=== PATIENT | male | born 1955 | race Caucasian/White ===

== ENCOUNTER 2018-01-14 07:20 | Emergency (ER) | payer OTHER ==
[2018-01-14] MEDS ORDERED: Lorazepam 2 MG/ML VIAL ONE (07:50)
[2018-01-14 07:56] LABS: INR-International Normal Ratio 1.3; Prothrombin Time 16.4 SEC (12.0-14.7)
[2018-01-14 07:57] LABS: Hemoglobin 9.8 g/dL (14.0-18.0); Mean Corpuscular HGB CONC 33.1 g/dL (32.0-36.0); Mean Corpuscular Hemoglobin 27.4 pg (27.0-31.0); Mean Corpuscular Volume 82.9 fL (78.0-98.0); Mean Platelet Volume 7.2 fL (7.4-10.4); PTT 48.9 SEC (22.9-36.1); Platelet Count 142 thou/uL (130-400); RBC Distribution Width 17.2 % (11.5-14.5); Red Blood Cell (RBC) Count 3.59 mill/uL (4.70-6.10); White Blood Cell (WBC) Count 4.1 thou/uL (4.8-10.8)
[2018-01-14 08:04] LABS: ALT (SGPT) 26 U/L (8-55); AST (SGOT) 51 U/L (5-34); Albumin 3.4 g/dL (3.4-4.8); Alkaline Phosphatase 157 U/L (40-150); Anion Gap 11 mmol/L (10-20); BUN (Urea Nitrogen) 18 mg/dL (8.4-25.7); Bilirubin, Total 1.6 mg/dL (0.2-1.2); CK (CPK) 120 U/L (30-200); Calc. Creatinine Clearance 0 mL/min (70-130); Calcium 9.1 mg/dL (7.8-10.44); Carbon Dioxide 24 mmol/L (23-31); Chloride 102 mmol/L (98-107); Estimated GFR-MDRD Greater than 90; Globulin 4.8 g/dL (2.4-3.5); Glucose 139 mg/dL (80-115); Lipase 83 U/L (8-78); Potassium 4.3 mmol/L (3.5-5.1); Protein, Total 8.2 g/dL (5.8-8.1); Sodium 133 mmol/L (136-145)
[2018-01-14 08:25] LABS: Acetaminophen Less than 6.0 mcg/mL (10.0-30.0); Alcohol Less than 10 mg/dL (Less than 10); Salicylate Less than 8.0 mg/dL (15.0-30.0)
[2018-01-14 08:37] LABS: Band 3 % (5-11); Eosinophils 3 % (0-10); Lymphocytes 14 % (21-51); MDiff Complete? YES; Monocytes 15 % (0-10); Neutrophil 63 % (42-75); PLT Morphology Comment Appears Adequate; Polychromasia SLIGHT = 2-3 cells (100X) (0-2/hpf)
--- NOTE | 2018-01-14 09:09 | CT ---
CT HEAD WITHOUT CONTRAST: Multiple axial tomograms were obtained through the head without IV enhancement. INDICATION: Altered mental status. COMPARISON: There are no comparisons. FINDINGS: There is a 9 mm dense nodular mass seen in the roof of the third ventricle at the foramen of Monro. This is consistent with a colloid cyst. Ventricle size is within normal range. There is no intraparenchymal mass, hemorrhage, or infarct identified. Paranasal sinuses are aerated, although there is mucosal thickening in the right maxillary antrum. There is abnormality involving the osseous structures at the base of the skull on the right. Increas ed sclerosis and bone thickening. This appears to primarily involve the sphenoid bone and temporal b one on the right. IMPRESSION: 1. 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 2. Abnormal osseous findings at the base of the skull on the right with associated mucosal thickenin g of the right maxillary sinus. Considerations include fibrous dysplasia and Margret's disease. Findings were related to Dr. Romero. CODE CR POS: [facility]
== END 2018-01-14 12:16 | disposition short-term general hospital (02) ==
LOC: ERS 07:20
DX: K72.90 Hepatic failure, unspecified without coma (principal); K74.60 Unspecified cirrhosis of liver; I11.0 Hypertensive heart disease with heart failure; I50.9 Heart failure, unspecified; E66.9 Obesity, unspecified; Z79.01 Long term (current) use of anticoagulants; Z79.899 Other long term (current) drug therapy; Z79.82 Long term (current) use of aspirin
CPT/HCPCS: 36415; 70450; 80053; 80307; 82140; 82550; 83690; 85025; 85610; 85730; 93005; 96361; 96374; J2060

== ENCOUNTER 2018-02-09 23:56 | Emergency (ER) | payer OTHER ==
[2018-02-10 01:25] LABS: INR-International Normal Ratio 1.3; Prothrombin Time 16.6 SEC (12.0-14.7)
[2018-02-10 01:45] LABS: Band 4 % (5-11); Eosinophils 9 % (0-10); Hemoglobin 9.5 g/dL (14.0-18.0); Lymphocytes 23 % (21-51); MDiff Complete? YES; Mean Corpuscular HGB CONC 32.6 g/dL (32.0-36.0); Mean Corpuscular Hemoglobin 27.6 pg (27.0-31.0); Mean Corpuscular Volume 84.6 fL (78.0-98.0); Monocytes 12 % (0-10); Neutrophil 49 % (42-75); PLT Morphology Comment Appears Decreased; Platelet Count 109 thou/uL (130-400); RBC Distribution Width 17.5 % (11.5-14.5); Red Blood Cell (RBC) Count 3.43 mill/uL (4.70-6.10); White Blood Cell (WBC) Count 3.2 thou/uL (4.8-10.8)
[2018-02-10 02:08] LABS: ALT (SGPT) 27 U/L (8-55); AST (SGOT) 45 U/L (5-34); Albumin 3.1 g/dL (3.4-4.8); Alkaline Phosphatase 142 U/L (40-150); Anion Gap 12 mmol/L (10-20); BUN (Urea Nitrogen) 12 mg/dL (8.4-25.7); Bilirubin, Total 2.2 mg/dL (0.2-1.2); Calc. Creatinine Clearance 0 mL/min (70-130); Calcium 9.2 mg/dL (7.8-10.44); Carbon Dioxide 24 mmol/L (23-31); Chloride 107 mmol/L (98-107); Estimated GFR-MDRD Greater than 90; Globulin 4.5 g/dL (2.4-3.5); Glucose 106 mg/dL (80-115); Lipase 82 U/L (8-78); Potassium 3.9 mmol/L (3.5-5.1); Protein, Total 7.6 g/dL (5.8-8.1); Sodium 139 mmol/L (136-145)
[2018-02-10] MEDS ORDERED: hydrALAZINE 20 MG/ML VIAL ONE (04:07)
[2018-02-10 07:06] LABS: Bilirubin Negative (Negative); Blood, Urine Negative (Negative); Clarity CLEAR (Clear); Glucose, Urine (Dipstick) Negative (Negative); Leukocyte Negative (Negative); Nitrite Negative (Negative); Protein, Urine (Dipstick) Negative (Neg-Trace); Specific Gravity, Urine 1.026 (1.002-1.036)
--- NOTE | 2018-02-10 07:38 | CT ---
PRELIMINARY REPORT/[facility]/EMERGENTY AFTER-HOURS PROCEDURE Addendum created by Lonnie Lopez MD on 02/10/2018 2:56 AM Central Time ([place] & [place]) Findings were discussed with MARIO HOOKS at 02/10/2018 2:55 AM CDT. Patient had prior head CT (images not currently available) which demonstrated the colloid cyst at the foramen of Thomas and abnormalit y at the skull base seen on current exam. Initial Report created on 02/10/2018 2:50 AM Central Time ([place] & [place]) CT Head Without Intravenous Contrast EXAM DATE/TIME: Exam ordered 02/10/2018 2:15 AM CLINICAL HISTORY: 62 years old, male; Signs and symptoms; Altered mental status/memory loss; Patient HX: Er 6; AMS; HX provided by [facility] staff. Reports that pt was found wandering around naked with AMS. Abdominal exam inc luded findings of abdomen tender, diffusely, mild intensity, abdomen distended TECHNIQUE: Axial computed tomography images of the head/brain without intravenous contrast. COMPARISON: No relevant prior studies available. FINDINGS: Brain: Normal. No hemorrhage. No significant white matter disease. No edema. Ventricles: No ventriculomegaly. Bones/joints: There is a expansile mass involving the lateral wall of the RIGHT sphenoid bone which e xtends into the pterygoid space with wall thickening of the sphenoid bone and low density internal de bris for which fibro-osseous lesion is possible. No acute fracture. Soft tissues: Normal. Sinuses: Unremarkable as visualized. No acute sinusitis. Mastoid air cells: Unremarkable as visualized. No mastoid effusion. Other findings: There is a 7 mm colloid cyst. IMPRESSION: 1. No acute intracranial hemorrhage. 2. Expansile mass involving the RIGHT sphenoid bone as above. 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 MRI may be performed for further evaluation if clinically warranted. 3. There is a 7 mm colloid cyst. Thank you for allowing us to participate in the care of your patient. Dictated and Authenticated by: Lonnie Lopez MD 02/10/2018 2:50 AM Central Time ([place] & [place]) CT BRAIN WITHOUT CONTRAST: FINDINGS: I agree with the preliminary report by RONY. No significant change is seen since exam of the 02-14-18. POS: [facility]
--- NOTE | 2018-02-10 07:50 | CT ---
PRELIMINARY REPORT/[facility]/EMERGENTY AFTER-HOURS PROCEDURE CT Abdomen and Pelvis With Intravenous Contrast EXAM DATE/TIME: Exam ordered 02/10/2018 2:19 AM CLINICAL HISTORY: 62 years old, male; Pain; Abdominal pain; Generalized; Patient HX: Er 6; AMS; HX provided by azul rolle. Reports that pt was found wandering around naked with AMS. Abdominal exam included findings of ab domen tender, diffusely, mild intensity, abdomen distended. Hepatitis C. TECHNIQUE: Axial computed tomography images of the abdomen and pelvis with intravenous contrast. Coronal reformatted images were created and reviewed. COMPARISON: No relevant prior studies available. FINDINGS: Lung bases: The visualized portions of the lung bases are normal. ABDOMEN: Liver: There is nodularity of the liver contour compatible cirrhosis. Gallbladder and bile ducts: The gallbladder is normal. There is no evidence of biliary ductal dilatio n. No calcified stones. Pancreas: The pancreas appears normal. No ductal dilation. Spleen: The spleen is mildly enlarged. Adrenals: The adrenal glands are normal. Kidneys and ureters: The kidneys appear normal. No hydronephrosis. Stomach and bowel: The duodenum is unremarkable. The stomach is normal. No obstruction. No mucosal th ickening. PELVIS: Appendix: No appendix is specifically identified. There is no evidence of fluid collections or inflam matory stranding in the right lower quadrant. Bladder: The bladder is normal. Reproductive: The prostate gland and seminal vesicles are normal. ABDOMEN and PELVIS: Intraperitoneal space: There is a small amount of free pelvic fluid present. There is trace fluid in the RIGHT upper quadrant. No free air. Bones/joints: There is sclerosis of the bilateral femoral heads suggestive of avascular necrosis. No acute fracture. No dislocation. Soft tissues: Normal. Vasculature: There are markedly enlarged esophageal varices and nodularity of the liver contour suggestive of portal hypertension. Lymph nodes: Normal. No enlarged lymph nodes. IMPRESSION: 1. There are markedly enlarged esophageal varices and nodularity of the liver contour suggestive of p ortal hypertension. 2. There is a small amount of free pelvic fluid present. No drainable ascites. Findings were discussed with MARIO HOOKS at 02/10/2018 2:54 AM CDT. Thank you for allowing us to participate in the care of your patient. Dictated and Authenticated by: Lonnie Lopez MD 02/10/2018 3:00 AM Central Time ([place] & [place]) FINAL REPORT CT ABDOMEN AND PELVIS WITH IV CONTRAST: I agree with the preliminary report given by Dr. Lonnie Lopez. POS: [facility]
== END 2018-02-10 09:17 | disposition short-term general hospital (02) ==
LOC: ERS 23:56
DX: K72.90 Hepatic failure, unspecified without coma (principal); I11.0 Hypertensive heart disease with heart failure; I50.9 Heart failure, unspecified; E66.9 Obesity, unspecified; Z79.899 Other long term (current) drug therapy; Z79.01 Long term (current) use of anticoagulants
CPT/HCPCS: 36415; 70450; 74177; 80053; 81003; 82140; 83690; 85025; 85610; 93005; 96374; J0360

== ENCOUNTER 2019-09-04 14:11 | Inpatient (IN) | payer OTHER ==
--- NOTE | 2019-09-04 15:22 | RAD ---
XR Chest 1 View Portable HISTORY: Altered mental status COMPARISON: None FINDINGS: The heart size is normal. The lungs are well expanded without focal areas of consolidation, pneumothorax or pleural effusions. IMPRESSION: No radiographic evidence of acute cardiopulmonary process.
[2019-09-04 15:24] LABS: #Eosinphils 0.2 thou/uL (0.0-0.7); #Monocytes 0.5 thou/uL (0.11-0.59); #Neutrophils 2.4 thou/uL (1.40-6.50); %Eosinophils 4.4 % (0.0-10.0); %Lymphocytes 24.5 % (21.0-51.0); %Monocytes 11.2 % (0.0-10.0); %Neutrophils 58.9 % (42.0-75.0); Mean Corpuscular HGB CONC 33.8 g/dL (32.0-36.0); Mean Corpuscular Hemoglobin 30.5 pg (27.0-31.0); Mean Corpuscular Volume 90.4 fL (78.0-98.0); Mean Platelet Volume 7.5 fL (7.4-10.4); Platelet Count 111 thou/uL (130-400); RBC Distribution Width 20.4 % (11.5-14.5); Red Blood Cell (RBC) Count 3.62 mill/uL (4.70-6.10)
[2019-09-04 15:49] LABS: Acetaminophen Less than 6.0 mcg/mL (10.0-30.0); Alcohol Less than 10 mg/dL (Less than 10); Salicylate Less than 8.0 mg/dL (15.0-30.0)
[2019-09-04 15:50] LABS: ALT (SGPT) 32 U/L (8-55); AST (SGOT) 65 U/L (5-34); Alkaline Phosphatase 185 U/L (40-110); Anion Gap 8 mmol/L (10-20); BUN (Urea Nitrogen) 14 mg/dL (8.4-25.7); Bilirubin, Total 1.4 mg/dL (0.2-1.2); CK (CPK) 564 U/L (30-200); Calc. Creatinine Clearance 0 mL/min (70-130); Calcium 9.1 mg/dL (7.8-10.44); Carbon Dioxide 28 mmol/L (23-31); Chloride 109 mmol/L (98-107); Estimated GFR-MDRD Greater than 90; Globulin 3.8 g/dL (2.4-3.5); Glucose 85 mg/dL (80-115); Potassium 3.8 mmol/L (3.5-5.1); Protein, Total 6.8 g/dL (5.8-8.1); Sodium 141 mmol/L (136-145)
--- NOTE | 2019-09-04 15:56 | CT ---
CT BRAIN NONCONTRAST: DATE: 09/04/2019 HISTORY: 64-year-old male with altered mental status. COMPARISON: 02/10/2018 FINDINGS: Again noted is the approximately 9 mm round hyperdense mass in the foramen of Monro centered minimall y to the left of midline. There is mild ventriculomegaly involving the lateral and third ventricles, which is either sac stable or minimally larger, No acute intra-axial or extra-axial hemorrhage. No mass effect, midline shift, extra-axial fluid collection, or acute calvarial fracture. No interval change in the large osseous lesion involving the right side of the body of the sphenoid b one, with osseous mural thickening, and soft tissue density centrally. This expansile mass deeply chronically indents the right sphenoid air cell, and has an exophytic component chronically impinging on the right lateral pterygoid muscle, and encroaches upon right pterygoid plates. No definite interval change. IMPRESSION: 1) colloid cyst. 2) mild ventriculomegaly could be on extra-axial basis due to diffuse brain parenchymal volume loss, and/or low-grade partial obstruction of foramen of Monro. This colloid cyst has the potential for causing acute ventricular obstruction causing acute obstructive hydrocephalus, although there is no c ompelling evidence of that currently. 3) probably no significant interval change overall. No acute intracranial findings. 4) chronic, expansile osseous mass involving the right side of the sphenoid bone. Probably fibro-osse ous lesion.
[2019-09-04 16:41] LABS: Bilirubin Negative (Negative); Blood, Urine Negative (Negative); Clarity Clear (Clear); Glucose, Urine (Dipstick) Normal (Negative); Leukocyte Negative Leu/uL (Negative); Nitrite Negative (Negative); Protein, Urine (Dipstick) Negative (Neg-Trace)
[2019-09-04 16:51] LABS: Amphetamine Not Detected (NotDetected); Barbiturates Screen Not Detected (NotDetected); Benzodiazepine Screen Not Detected (NotDetected); Cocaine Metabolite Screen Not Detected (NotDetected); Medtox Control Line Valid? VALID (VALID); Medtox Reader # READER 1; Methadone Not Detected (NotDetected); Methamphetamine Not Detected (NotDetected); Opiate Screen Not Detected (NotDetected); Oxycodone Screen Not Detected (NotDetected); Phencyclidine (PCP) Not Detected (NotDetected); THC/Cannabinoid Screen Not Detected (NotDetected); Tricyclic Screen Not Detected (NotDetected)
[2019-09-04] MEDS ORDERED: Acetaminophen 325 MG TAB PO PRN (20:21)
[2019-09-04] MEDS ORDERED: Ondansetron PF 4 MG/2 ML Vial IVP PRN (20:21)
[2019-09-04] MEDS ORDERED: Senokot S 8.6-50 MG TAB PO PRN (20:21)
--- NOTE | 2019-09-04 22:06 | PDOC.HHP ---
Hospitalist HPI - History of Present Illness Altered mental status History of Present Illness: 64 yo male with alcoholic cirrhosis who is a [facility] inmate is brought to the ER due to altered mental status. Patient has encephalopathy and is unable to provide accurate history or ROS. History obtained from ER notes and from correctional facility officers. Apparently, the patient urinated in his cell and he had been refusing to take his lactulose. In the ER, the patient was not oriented to time, place or person. Patient denies fever, chills, N/V. No CP, SOB , cough. He reports leg swelling. Hospitalist ROS - Review of Systems All other systems reviewed; all pertinent +/- noted in HPI/Subj Hospitalist History - Past Medical History Source: patient, old records Cardiac: reports: CHF, HTN Gastrointestinal: reports: Other (Cirrhosis; Portal vein thrombosis; Esophageal varices) Heme/Onc: reports: Other (Thrombocytopenia) - Past Surgical History Past Surgical History: reports: Other (Right ankle surgery) - Social History Smoking Status: Former smoker Alcohol: reports: None (Prior heavy drinker) Drugs: reports: none Living Situation: Other (Retirement) - Exam General Appearance: awake alert, ill appearing Eye: PERRL, anicteric sclera ENT: normocephalic atraumatic, no oropharyngeal lesions, moist mucosa Neck: supple, symmetric, no JVD, no thyromegaly, no lymphadenopathy Heart: RRR, no murmur, no gallops, no rubs, normal peripheral pulses Respiratory: CTAB, no wheezes, no rales, no ronchi, normal chest expansion, no tachypnea Respiratory - other findings: not using accessory muscles Gastrointestinal: soft, non-tender, non-distended, normal bowel sounds Extremities: no cyanosis, no clubbing, 1+ LE edema (bilateral) Skin: normal turgor, no rashes Skin - other findings: lipoma on the back Neurological: cranial nerve grossly intact, normal sensation to touch Musculoskeletal: normal tone, normal strength, no muscle wasting Psychiatric: normal affect, oriented to person, oriented to place, oriented to time Hospitalist Results - Labs Result Diagrams: 09/04/19 14:38 09/04/19 14:38 Lab results: WBC 4.0 thou/uL (4.8-10.8) L 09/04/19 14:38 Hgb 11.0 g/dL (14.0-18.0) L 09/04/19 14:38 Hct 32.7 % (42.0-52.0) L 09/04/19 14:38 MCV 90.4 fL (78.0-98.0) 09/04/19 14:38 Plt Count 111 thou/uL (130-400) L 09/04/19 14:38 Neutrophils % 58.9 % (42.0-75.0) 09/04/19 14:38 Sodium 141 mmol/L (136-145) 09/04/19 14:38 Potassium 3.8 mmol/L (3.5-5.1) 09/04/19 14:38 Chloride 109 mmol/L (98-107) H 09/04/19 14:38 Carbon Dioxide 28 mmol/L (23-31) 09/04/19 14:38 BUN 14 mg/dL (8.4-25.7) 09/04/19 14:38 Creatinine 0.79 mg/dL (0.7-1.3) 09/04/19 14:38 Glucose 85 mg/dL (80-115) 09/04/19 14:38 Calcium 9.1 mg/dL (7.8-10.44) 09/04/19 14:38 Total Bilirubin 1.4 mg/dL (0.2-1.2) H 09/04/19 14:38 AST 65 U/L (5-34) H 09/04/19 14:38 ALT 32 U/L (8-55) 09/04/19 14:38 Alkaline Phosphatase 185 U/L (40-110) H 09/04/19 14:38 Ammonia 66 umol/L (18-72) 09/04/19 14:38 Creatine Kinase 564 U/L (30-200) H 09/04/19 14:38 Troponin I 0.015 ng/mL (< 0.028) 09/04/19 14:38 Serum Total Protein 6.8 g/dL (5.8-8.1) 09/04/19 14:38 Albumin 3.0 g/dL (3.4-4.8) L 09/04/19 14:38 Urine Ketones Negative mg/dL (Negative) 09/04/19 16:28 Urine Blood Negative (Negative) 09/04/19 16:28 Urine Nitrite Negative (Negative) 09/04/19 16:28 Ur Leukocyte Esterase Negative Kristy/uL (Negative) 09/04/19 16:28 - EKG Interpretation EKG: Personally reviewed - Sinus rhythm; No ST-T changes concerning for ischemia - Radiology Interpretation Chest x-ray Status: image reviewed by me (No consolidation or CP angle blunting) CT scan - head Status: report reviewed by me (Colloid cyst; Mild ventriculomegaly) Hospitalist H&P A/P - Problem (1) Hepatic encephalopathy Code(s): K72.90 - HEPATIC FAILURE, UNSPECIFIED WITHOUT COMA Status: Acute Assessment and Plan: Admit to inpatient status. Expected to stay at least 2 midnights. High risk due to acute rhabdomyolysis and risk of KRISTI Start xifaxan and resume lactulose Ammonia level normal but patient has a slow demeanor (2) Rhabdomyolysis Code(s): M62.82 - RHABDOMYOLYSIS Status: Acute Qualifiers: Rhabdomyolysis type: non-traumatic Qualified Code(s): M62.82 - Rhabdomyolysis Assessment and Plan: IV fluids Monitor CK level (3) Colloid cyst of brain Code(s): Q04.6 - CONGENITAL CEREBRAL CYSTS Status: Chronic Assessment and Plan: Associated with mild ventriculomegaly Concern for possible complications Neurology and neurosurgery consults (4) Alcoholic cirrhosis Code(s): K70.30 - ALCOHOLIC CIRRHOSIS OF LIVER WITHOUT ASCITES Status: Chronic Qualifiers: Ascites presence: without ascites Qualified Code(s): K70.30 - Alcoholic cirrhosis of liver without ascites Assessment and Plan: Quit alcohol use now GI consult (5) HTN (hypertension) Code(s): I10 - ESSENTIAL (PRIMARY) HYPERTENSION Status: Chronic Qualifiers: Hypertension type: essential hypertension Qualified Code(s): I10 - Essential (primary) hypertension Assessment and Plan: Stable BP Hold HTN due to need for IVF for his rhabdo Monitor BP and adjust meds PRN (6) Thrombocytopenia Code(s): D69.6 - THROMBOCYTOPENIA, UNSPECIFIED Status: Chronic Assessment and Plan: Likely related to cirrhosis - Plan Plan: Patient unable to provide his code status due to encephalopathy. Will clarify in AM
[2019-09-04 22:21] VITALS: BMI 29.5
[2019-09-04] MEDS ORDERED: Rifaximin 550 MG TAB PO SCH (22:30)
[2019-09-05] MEDS: Heparin 5,000 UNITS/ML VIAL SC SCH ×5 (00:27→21:45)
[2019-09-05] MEDS: 1/2 NS w/KCL 20 mEq 1,000 ML IV SCH ×2 (00:43→13:33)
[2019-09-05 05:40] LABS: INR-International Normal Ratio 1.3; Prothrombin Time 16.4 SEC (12.0-14.7)
[2019-09-05 05:40] LABS: #Eosinphils 0.1 thou/uL (0.0-0.7); #Lymphocytes 0.7 thou/uL (1.20-3.40); #Monocytes 0.3 thou/uL (0.11-0.59); #Neutrophils 1.7 thou/uL (1.40-6.50); %Basophils 0.4 % (0.0-1.0); %Lymphocytes 26.2 % (21.0-51.0); %Monocytes 10.1 % (0.0-10.0); %Neutrophils 59.2 % (42.0-75.0); Hemoglobin 10.6 g/dL (14.0-18.0); Mean Corpuscular HGB CONC 34.2 g/dL (32.0-36.0); Mean Corpuscular Hemoglobin 30.9 pg (27.0-31.0); Mean Corpuscular Volume 90.4 fL (78.0-98.0); Mean Platelet Volume 7.8 fL (7.4-10.4); Platelet Count 99 thou/uL (130-400); RBC Distribution Width 20.1 % (11.5-14.5); Red Blood Cell (RBC) Count 3.43 mill/uL (4.70-6.10); White Blood Cell (WBC) Count 2.8 thou/uL (4.8-10.8)
[2019-09-05 06:05] LABS: ALT (SGPT) 29 U/L (8-55); AST (SGOT) 57 U/L (5-34); Albumin 2.6 g/dL (3.4-4.8); Alkaline Phosphatase 164 U/L (40-110); Anion Gap 8 mmol/L (10-20); BUN (Urea Nitrogen) 15 mg/dL (8.4-25.7); Bilirubin, Total 1.3 mg/dL (0.2-1.2); CK (CPK) 317 U/L (30-200); Calc. Creatinine Clearance 131 mL/min (70-130); Calcium 8.4 mg/dL (7.8-10.44); Carbon Dioxide 25 mmol/L (23-31); Chloride 110 mmol/L (98-107); Estimated GFR-MDRD Greater than 90; Globulin 3.5 g/dL (2.4-3.5); Glucose 94 mg/dL (80-115); Potassium 3.9 mmol/L (3.5-5.1); Protein, Total 6.1 g/dL (5.8-8.1); Sodium 139 mmol/L (136-145)
[2019-09-05] MEDS: Rifaximin 550 MG TAB PO SCH ×2 (10:03→21:45)
--- NOTE | 2019-09-05 11:23 | PDOC.HOSPP ---
- Subjective Encounter Date: 09/05/19 Encounter Time: 11:21 Subjective: alert,oriented - Objective Vital Signs & Weight: Vital Signs (12 hours) Temp Pulse Resp BP Pulse Ox 09/05/19 08:20 96 09/05/19 07:35 98.0 F 65 16 141/69 H 96 09/05/19 04:08 98.5 F 71 16 114/61 96 Weight Weight 194 lb 4.8 oz I&O: 09/04/19 09/05/19 09/06/19 06:59 06:59 07:59 Intake Total 480 Output Total 725 400 Balance -245 -400 Result Diagrams: 09/05/19 05:21 09/05/19 05:21 Hospitalist ROS - Medication Medications: Active Medications Generic Name Dose Route Start Last Admin Trade Name Freq PRN Reason Stop Dose Admin Heparin Sodium (Porcine) 5,000 units 09/04/19 21:00 09/05/19 10:03 Heparin SC 5,000 units TID LETTY Administration Potassium Chloride/Sodium Chloride 1,000 mls @ 75 mls/hr 09/04/19 20:30 09/04 00:43 1/2 Ns W/Kcl 20 Meq IV 1,000 mls .[id number] LETTY Administration Lactulose 30 gm 09/05/19 09:00 09/05/19 10:02 Lactulose PO 30 gm TID LETTY Administration Rifaximin 550 mg 09/05/19 09:00 09/05/19 10:03 Xifaxan PO 550 mg BID LETTY Administration - Exam Neck: no JVD Heart: RRR, no murmur Respiratory: CTAB Gastrointestinal: soft, normal bowel sounds Extremities: no edema Hosp A/P (1) Hepatic encephalopathy Code(s): K72.90 - HEPATIC FAILURE, UNSPECIFIED WITHOUT COMA Status: Acute (2) Alcoholic cirrhosis Code(s): K70.30 - ALCOHOLIC CIRRHOSIS OF LIVER WITHOUT ASCITES Status: Chronic Qualifiers: Ascites presence: without ascites Qualified Code(s): K70.30 - Alcoholic cirrhosis of liver without ascites (3) HTN (hypertension) Code(s): I10 - ESSENTIAL (PRIMARY) HYPERTENSION Status: Chronic Qualifiers: Hypertension type: essential hypertension Qualified Code(s): I10 - Essential (primary) hypertension (4) Pancytopenia Code(s): D61.818 - OTHER PANCYTOPENIA Status: Acute - Plan cont lactulose, probable DC in AM
--- NOTE | 2019-09-05 14:05 | EKG ---
Test Reason : Blood Pressure : / mmHG Vent. Rate : 065 BPM Atrial Rate : 065 BPM P-R Int : 188 ms QRS Dur : 084 ms QT Int : 458 ms P-R-T Axes : 093 015 058 degrees QTc Int : 476 ms Normal sinus rhythm Normal ECG Confirmed by LION SENIOR DO ([id number]), art editor DOUG SPANN ([id number]) on 09/05/2019 2:04:59 PM Referred By: Confirmed By:LION SENIOR DO
--- NOTE | 2019-09-05 15:04 | CON ---
DATE OF CONSULTATION: 09/05/2019 CONSULTING PHYSICIAN: Hospitalist Service. IMPRESSION: Cirrhosis-related hepatic encephalopathy. PLAN: Lactulose. HISTORY OF PRESENT ILLNESS: Mr. Elliott is a 64-year-old man who is an inmate with a history of cirrhosis. He had been refusing his lactulose. He became a bit confused. He was brought into the hospital for evaluation. His lactulose was reinstituted. His ammonia was 66. He has had some mild liver function elevations. His CT of the brain shows a colloid cyst with some questionable hydrocephalus. The ventricles are mildly dilated. He otherwise is feeling better now. He is getting around, walking independently. He had no other particular complaints. PAST HISTORY: Cirrhosis. ALLERGIES: NONE REPORTED. SOCIAL HISTORY: He is an inmate. FAMILY HISTORY: Noncontributory. REVIEW OF SYSTEMS: Ten-system review of systems is otherwise negative. PHYSICAL EXAMINATION: VITAL SIGNS: Blood pressure 110/70 and pulse 53. HEENT: Pupils are equal and reactive. Conjunctivae clear. Oropharynx clear. NECK: Supple. EXTREMITIES: No cyanosis. NEUROLOGIC: He is alert and appropriate. His speech is fluent and clear. Cranial nerves are intact. Motor exam showed good therapeutic recreation director strength bilaterally. He did not have any asterixis. He was walking independently. Sensations intact. SUMMARY: Middle-aged gentleman with cirrhosis and mild hepatic encephalopathy, seems to be doing fine. I do not have anything to add. Job ID: [id number]
[2019-09-06] MEDS: 1/2 NS w/KCL 20 mEq 1,000 ML IV SCH (03:22)
[2019-09-06 08:05] VITALS: BP 124/61; TEMP 97.8
[2019-09-06] MEDS: Heparin 5,000 UNITS/ML VIAL SC SCH (09:35)
[2019-09-06] MEDS: Rifaximin 550 MG TAB PO SCH (09:36)
--- NOTE | 2019-09-06 10:12 | DIS ---
DATE OF ADMISSION: 09/04/2019 DATE OF DISCHARGE: 09/06/2019 Discharged [facility] to [facility]. Unknown PCP. FINAL DIAGNOSES: Hepatic encephalopathy, alcoholic cirrhosis, hypertension, pancytopenia secondary to cirrhosis and coagulopathy secondary to cirrhosis. DISCHARGE MEDICATIONS: 1. Lasix 40 mg twice a day. 2. Ferrous sulfate 325 mg twice a day. 3. Omeprazole 40 mg a day. 4. Lactulose 20 g b.i.d. 5. Spironolactone 100 mg p.o. daily. ALLERGIES: NO KNOWN DRUG ALLERGIES. CODE STATUS: Full. PENDING AT TIME OF DISCHARGE: Nothing. DIET: Heart healthy. HOSPITAL COURSE: The patient was referred to the [facility] the [facility]ist Service by [facility] for hepatic encephalopathy. He was confused in the emergency room. Reportedly had not been taken his lactulose. His pertinent studies, CBC; 4.0 white cell count, 11.0 hemoglobin, 111,000 platelets count. INR 1.3. Metabolic profile revealed a bilirubin 1.4, AST of 65, alkaline phosphatase of 185. TSH was 1.8. His lactulose was restarted. His ammonia level was actually only 66. He is now alert, oriented, doing well. [facility] is [facility] the [facility] for followup with PCP there in 3 days. Job ID: [id number]
--- NOTE | 2019-09-06 22:13 | CON ---
DATE OF CONSULTATION: 09/05/2019 REASON FOR CONSULTATION: Altered mental status, hepatic encephalopathy. HISTORY OF PRESENT ILLNESS: Mr. Breezy Elliott is a 64-year-old male with liver cirrhosis due to alcohol abuse. The patient is an inmate at [facility]. He was found to have altered mental status and was refusing to take the lactulose. There is no history of fever or chills. No abdominal pain, nausea, or vomiting. No history of hematochezia or melena. The patient was brought to the ER for altered mental status. He was found to have mildly elevated ammonia level. His renal lactulose was 30 mL every 8 hours. When I saw him this morning, he was awake, alert, and communicative. He is able to tell me the age, date of , where his family lives, etc. Denies abdominal pain. No history of fever. No history of any GI bleeding. Since admission, mental status improved. He wants to eat. There is no other relevant history. MEDICAL ILLNESS: 1. Liver cirrhosis due to alcohol abuse. 2. Hepatic encephalopathy, mild. 3. Pancytopenia. 4. Colitis of the brain and is seen by Neurology. 5. Hypertension. 6. Hypersplenism. ALLERGIES: NONE. SOCIAL HISTORY: The patient is a former smoker. He has a past history of alcohol abuse. No history of drug abuse. PAST SURGICAL HISTORY: None except for right ankle surgery. FAMILY HISTORY: Nonrelevant. REVIEW OF SYSTEMS: Ten-point system reviewed. CONSTITUTIONAL: No history of any fever. No history of any chills. Has had no change in exercise tolerance. HEAD: No chronic headache. EYES: No diplopia. No impaired vision. EARS: No hearing loss. No pain. NOSE: No nosebleed. THROAT: No sore throat or dysphagia. LUNGS: No chronic coughing or hemoptysis. No dyspnea. CARDIOVASCULAR SYSTEM: No chest pain. No palpitation. No dyspnea, orthopnea, or PND. GI: No abdominal pain. No nausea or vomiting. No hematochezia. No melena. : No dysuria, hematuria, or frequent urination. MUSCULOSKELETAL: Unremarkable. NEUROLOGIC: Unremarkable. ENDOCRINE: Unremarkable. PHYSICAL EXAMINATION: GENERAL: He is obese, appears comfortable. He is awake, alert, communicative. VITAL SIGNS: He is afebrile. Pulse is 69, blood pressure 130/60. HEENT: Conjunctivae are clear. NECK: Supple. No adenitis or thyromegaly noted. CARDIOVASCULAR SYSTEM: First and second heart sounds normal. LUNGS: Clear to auscultation. ABDOMEN: Soft and pendulous. Abdomen is nontender. No organomegaly. No masses. Bowel sounds normal. EXTREMITIES: Reveal trace edema. CENTRAL NERVOUS SYSTEM: He is awake, alert, communicative. He is able to tell me his name, his date of , where his family lives, etc. LABORATORY DATA: On admission, WBC 4000, that came down to 2800. Hemoglobin 11, hematocrit 32.7, MCV 90.4, platelet count is 111,000, polymorphs 58, lymphocytes 224, monos 11. Serum chemistry, ammonia level was 66. CPK 564, bilirubin 1.3, AST 57, ALT 29, phosphorus was 4. Lytes are normal. Glucose is 94, calcium 8.4, albumin is 2.6. Abdominal CAT scan done shows splenic varices, esophageal varices, splenomegaly. CAT scan done showed same findings was seen in 2018 and mildly enlarged ventricular size. CLINICAL IMPRESSION: 1. A 64-year-old male with liver cirrhosis, alcohol abuse, presents with altered mental status and some generalized weakness. Mental status markedly improved with lactulose. There is no evidence of sepsis. No evidence of GI bleeding. 2. Obesity. 3. Pancytopenia from liver cirrhosis, mild hepatic encephalopathy. 4. Hypertension. RECOMMENDATIONS: 1. Increase lactulose to 4 times a day. 2. Heart healthy low-protein diet. 3. May consider discharge back to [facility] tomorrow if he does well overnight. Job ID: [id number]
--- NOTE | 2019-09-09 10:03 | PQF ---
VIRA DESOUZA COUNCIL C MD [id number] CLINICAL DOCUMENTATION CLARIFICATION FORM: POST DISCHARGE Addendum to original discharge summary date: ____ Late entry note date: __ DATE:09/09/2019 ATTN:SOURAV CURRY MD Please exercise your independent, professional judgment in responding to the clarification form. Clinical indicators are provided on the bottom of this form for your review Please check appropriate box(s): [ ] Hepatic encephalopathy due to alcoholic use [ ] Hepatic encephalopathy not due to alcoholic use [ ] Other diagnosis _hepatic encephalopathy due to cirrhosis of liver caused by alcohol consuption [ ] Unable to determine For continuity of documentation, please document condition throughout progress notes and discharge summary. Thank You. CLINICAL INDICATORS - SIGNS / SYMPTOMS / LABS Altered mental status-Documented in H&P on 09/03 by Brady Candelaria MD Alcohol:prior heavy drinker -Documented in H&P on 09/03 by Brady Candelaria MD Alcoholic cirrhosis-Documented in H&P on 09/03 by Brady Candelaria MD Cirrhosis -related hepatic encephalopathy -Documented in consultation report on 09/04 by Gordon Mandel MD RISK FACTORS Alcohol:prior heavy drinker -Documented in H&P on 09/03 by Brady Candelaria MD Alcoholic cirrhosis-Documented in H&P on 09/03 by Brady Candelaria MD TREATMENTS: Quit alcohol use now-Documented in H&P on 09/03 by Brady Candelaria MD Start Xifaxan and resume lactulose-Documented in H&P on 09/03 by Brady Candelaria MD [employer] (This form is maintained as a part of the permanent medical record) 2014 [employer]. All Rights Reserved [email or web address] [email or web address] [phone] [email or web address]
== END 2019-09-06 12:36 | DRG 433 ==
LOC: ERS 14:11 → 2SW 21:48 → OBSVTOIN 21:52 → 2SW 21:52
PROVIDERS: ADMIT Family Medicine; ATTEND Family Medicine
DX: K70.40 Alcoholic hepatic failure without coma (principal); D61.818 Other pancytopenia; D68.8 Other specified coagulation defects; C24.9 Malignant neoplasm of biliary tract, unspecified; M62.82 Rhabdomyolysis; Q04.6 Congenital cerebral cysts; I85.00 Esophageal varices without bleeding; F10.188 Alcohol abuse with other alcohol-induced disorder; K70.30 Alcoholic cirrhosis of liver without ascites; E66.9 Obesity, unspecified; Z68.29 Body mass index [BMI] 29.0-29.9, adult; I11.0 Hypertensive heart disease with heart failure; I50.9 Heart failure, unspecified; R40.2362 Coma scale, best motor response, obeys commands, at arrival to emergency department; R40.2142 Coma scale, eyes open, spontaneous, at arrival to emergency department; R40.2252 Coma scale, best verbal response, oriented, at arrival to emergency department; Z87.891 Personal history of nicotine dependence; Z98.890 Other specified postprocedural states; D69.6 Thrombocytopenia, unspecified; D73.1 Hypersplenism; Y90.0 Blood alcohol level of less than 20 mg/100 ml
CPT/HCPCS: 36415; 70450; 71045; 80053; 80306; 80307; 81003; 82140; 82550; 84443; 84484; 85025; 85610; 93005; J1644; J3480

== ENCOUNTER 2019-09-19 13:32 | Emergency (ER) | payer OTHER ==
[2019-09-19 14:15] LABS: Bilirubin Negative (Negative); Blood, Urine Negative (Negative); Clarity Clear (Clear); Glucose, Urine (Dipstick) Normal (Negative); Leukocyte Negative Leu/uL (Negative); Nitrite Negative (Negative); Protein, Urine (Dipstick) Negative (Neg-Trace)
[2019-09-19 14:46] LABS: PTT 33.4 SEC (22.9-36.1)
--- NOTE | 2019-09-19 14:46 | RAD ---
Exam: Chest one view HISTORY:Altered mental status. Comparison: 09/04/2019 FINDINGS: Cardiac silhouette:Cardiomegaly Aorta: Atherosclerosis Pulmonary vessels: Normal Costophrenic angles: Clear LUNGS: No masses or consolidation. Pneumothorax: None Osseous abnormalities: Chronic changes in the left shoulder. IMPRESSION: 1. Atherosclerosis. 2. No acute cardiopulmonary process.
[2019-09-19 14:49] LABS: #Basophils 0.1 thou/uL (0.0-0.2); #Eosinphils 0.1 thou/uL (0.0-0.7); #Lymphocytes 0.9 thou/uL (1.20-3.40); #Monocytes 0.5 thou/uL (0.11-0.59); #Neutrophils 1.8 thou/uL (1.40-6.50); %Basophils 1.7 % (0.0-1.0); %Eosinophils 3.3 % (0.0-10.0); %Lymphocytes 26.4 % (21.0-51.0); %Monocytes 14.3 % (0.0-10.0); %Neutrophils 54.3 % (42.0-75.0); Hemoglobin 11.9 g/dL (14.0-18.0); Mean Corpuscular HGB CONC 30.6 g/dL (32.0-36.0); Mean Corpuscular Hemoglobin 29.4 pg (27.0-31.0); Mean Corpuscular Volume 95.9 fL (78.0-98.0); Mean Platelet Volume 8.8 fL (7.4-10.4); Platelet Count 92 thou/uL (130-400); RBC Distribution Width 19.4 % (11.5-14.5); Red Blood Cell (RBC) Count 4.06 mill/uL (4.70-6.10); White Blood Cell (WBC) Count 3.3 thou/uL (4.8-10.8)
[2019-09-19 14:50] LABS: INR-International Normal Ratio 1.4; Prothrombin Time 16.8 SEC (12.0-14.7)
[2019-09-19 15:01] LABS: ALT (SGPT) 23 U/L (8-55); AST (SGOT) 40 U/L (5-34); Alkaline Phosphatase 161 U/L (40-110); Anion Gap 13 mmol/L (10-20); BUN (Urea Nitrogen) 11 mg/dL (8.4-25.7); Bilirubin, Total 2.2 mg/dL (0.2-1.2); Calc. Creatinine Clearance 0 mL/min (70-130); Calcium 8.9 mg/dL (7.8-10.44); Carbon Dioxide 23 mmol/L (23-31); Chloride 107 mmol/L (98-107); Estimated GFR-MDRD 86; Globulin 3.7 g/dL (2.4-3.5); Glucose 100 mg/dL (80-115); Lipase 35 U/L (8-78); Potassium 3.8 mmol/L (3.5-5.1); Protein, Total 6.7 g/dL (5.8-8.1); Sodium 139 mmol/L (136-145)
== END 2019-09-19 15:39 ==
LOC: ERS 13:32
DX: E80.6 Other disorders of bilirubin metabolism (principal); K76.9 Liver disease, unspecified; Z91.14 Patient's other noncompliance with medication regimen; I11.0 Hypertensive heart disease with heart failure; I50.9 Heart failure, unspecified; Z79.899 Other long term (current) drug therapy
CPT/HCPCS: 36415; 71045; 80053; 81003; 82140; 83690; 84484; 85025; 85610; 85730; 93005

== ENCOUNTER 2019-09-24 02:22 | Emergency (ER) | payer OTHER ==
[2019-09-24 03:03] LABS: #Eosinphils 0.1 thou/uL (0.0-0.7); #Lymphocytes 0.9 thou/uL (1.20-3.40); #Monocytes 0.5 thou/uL (0.11-0.59); #Neutrophils 2.7 thou/uL (1.40-6.50); %Basophils 0.3 % (0.0-1.0); %Lymphocytes 21.9 % (21.0-51.0); %Monocytes 11.6 % (0.0-10.0); %Neutrophils 64.2 % (42.0-75.0); Hemoglobin 13.5 g/dL (14.0-18.0); Mean Corpuscular HGB CONC 34.8 g/dL (32.0-36.0); Mean Corpuscular Hemoglobin 31.5 pg (27.0-31.0); Mean Corpuscular Volume 90.6 fL (78.0-98.0); Mean Platelet Volume 8.2 fL (7.4-10.4); Platelet Count 113 thou/uL (130-400); RBC Distribution Width 18.5 % (11.5-14.5); Red Blood Cell (RBC) Count 4.29 mill/uL (4.70-6.10); White Blood Cell (WBC) Count 4.2 thou/uL (4.8-10.8)
[2019-09-24 03:08] LABS: INR-International Normal Ratio 1.3; PTT 42.4 SEC (22.9-36.1); Prothrombin Time 16.4 SEC (12.0-14.7)
[2019-09-24 03:17] LABS: ALT (SGPT) 25 U/L (8-55); AST (SGOT) 48 U/L (5-34); Albumin 3.4 g/dL (3.4-4.8); Alkaline Phosphatase 164 U/L (40-110); Anion Gap 17 mmol/L (10-20); BUN (Urea Nitrogen) 17 mg/dL (8.4-25.7); Bilirubin, Total 2.8 mg/dL (0.2-1.2); Calc. Creatinine Clearance 0 mL/min (70-130); Calcium 8.9 mg/dL (7.8-10.44); Carbon Dioxide 22 mmol/L (23-31); Chloride 108 mmol/L (98-107); Estimated GFR-MDRD 87; Globulin 3.9 g/dL (2.4-3.5); Glucose 144 mg/dL (80-115); Potassium 3.6 mmol/L (3.5-5.1); Protein, Total 7.3 g/dL (5.8-8.1); Sodium 143 mmol/L (136-145)
[2019-09-24 03:40] LABS: CKMB 6.4 ng/mL (0-6.6)
== END 2019-09-24 08:08 | disposition short-term general hospital (02) ==
LOC: ERS 02:22
DX: K72.90 Hepatic failure, unspecified without coma (principal); R41.82 Altered mental status, unspecified; I11.0 Hypertensive heart disease with heart failure; I50.9 Heart failure, unspecified; D50.9 Iron deficiency anemia, unspecified; Z79.899 Other long term (current) drug therapy
CPT/HCPCS: 36415; 51701; 80053; 82140; 82553; 84484; 85025; 85610; 85730

== ENCOUNTER 2019-11-06 21:48 | Observation (INO) | payer OTHER ==
[2019-11-06 22:36] LABS: Bilirubin Negative (Negative); Blood, Urine Negative (Negative); Clarity Clear (Clear); Glucose, Urine (Dipstick) Normal (Negative); Leukocyte Negative Leu/uL (Negative); Nitrite Negative (Negative); Protein, Urine (Dipstick) Negative (Neg-Trace); Urobilinogen 6 mg/dL (Less than 2)
[2019-11-06 23:18] LABS: #Eosinphils 0.2 thou/uL (0.0-0.7); #Lymphocytes 0.9 thou/uL (1.20-3.40); #Monocytes 0.4 thou/uL (0.11-0.59); #Neutrophils 2.3 thou/uL (1.40-6.50); %Basophils 1.1 % (0.0-1.0); %Lymphocytes 23.9 % (21.0-51.0); %Monocytes 10.8 % (0.0-10.0); %Neutrophils 59.2 % (42.0-75.0); Hemoglobin 12.3 g/dL (14.0-18.0); Mean Corpuscular HGB CONC 33.7 g/dL (32.0-36.0); Mean Corpuscular Hemoglobin 33.5 pg (27.0-31.0); Mean Corpuscular Volume 99.4 fL (78.0-98.0); Mean Platelet Volume 6.7 fL (7.4-10.4); Platelet Count 132 thou/uL (130-400); RBC Distribution Width 16.1 % (11.5-14.5); Red Blood Cell (RBC) Count 3.66 mill/uL (4.70-6.10); White Blood Cell (WBC) Count 3.8 thou/uL (4.8-10.8)
--- NOTE | 2019-11-06 23:34 | RAD ---
Chest one view HISTORY: Altered mental status. Dyspnea. COMPARISON: 09/19/2019. FINDINGS: Cardiac silhouette is magnified by projection. Mediastinum is rotated rightward with the pa tient. No confluent airspace consolidation or evidence of pneumothorax. IMPRESSION : No active cardiopulmonary abnormalities are demonstrated.
[2019-11-06 23:38] LABS: ALT (SGPT) 30 U/L (8-55); AST (SGOT) 50 U/L (5-34); Albumin 3.4 g/dL (3.4-4.8); Alkaline Phosphatase 148 U/L (40-110); Anion Gap 11 mmol/L (10-20); BUN (Urea Nitrogen) 11 mg/dL (8.4-25.7); Bilirubin, Total 2.3 mg/dL (0.2-1.2); Calc. Creatinine Clearance 0 mL/min (70-130); Carbon Dioxide 26 mmol/L (23-31); Chloride 109 mmol/L (98-107); Estimated GFR-MDRD Greater than 90; Globulin 3.8 g/dL (2.4-3.5); Glucose 106 mg/dL (80-115); Potassium 3.8 mmol/L (3.5-5.1); Protein, Total 7.2 g/dL (5.8-8.1); Sodium 142 mmol/L (136-145)
--- NOTE | 2019-11-06 23:42 | CT ---
CT head noncontrast HISTORY: Altered mental status. COMPARISON: 01/14/2018. FINDINGS: There is no evidence of acute intracranial hemorrhage or infarct. Physiologic calcification at the right basal ganglia is. The 8 mm hyperdense colloid cyst at the foramina of Thomas is unchanged in appearance. There is no mass effect or shift of midline structures. 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 No acute intracranial abnor malities are demonstrated.
--- NOTE | 2019-11-07 01:16 | PDOC.FPRHP ---
- History of Present Illness Chief Complaint: AMS History of Present Illness: 64 yo incarcerated male with PMH alcoholic cirrhosis is admitted for AMS. History obtained from checkout. Patient unable to give history. He was reported completely alert and oriented earlier today and then progressively became more altered and was brought to ED. Patient does not know what happened today, thinks he is still in penitentiary. Denies any complaints and says he is feeling well. 09/23 presented for AMS due to refusing lactulose and was transfered to [facility]. Unable to be transferred today as [place] was at capacity. He was admitted 2 months ago here for similar presentation as well, was not taking lactulose. He improved with lactulose and was discharged. GI and neuro were consulted at that time. ED Course: No medications given in ED CT brain: stable intraventricular colloid cyst and chronic findings stable. No acute abnormalities. - Allergies/Adverse Reactions Allergies Allergy/AdvReac Type Severity Reaction Status Date / Time No Known Drug Allergies Allergy Verified 11/07/19 03:05 - Home Medications Medication Instructions Recorded Confirmed Type Ferrous Sulfate 325 mg PO BID 09/05/19 11/07/19 History Furosemide 40 mg PO BID 09/05/19 11/07/19 History Lactulose 30 ml PO TID 09/05/19 11/07/19 History Omeprazole 20 mg PO DAILY 09/05/19 11/07/19 History Spironolactone 100 mg PO DAILY 09/05/19 11/07/19 History Rifaximin [Xifaxan] 600 mg PO BID 11/07/19 11/07/19 History - History Patient unable to provide history. Chart reviewed. PMHx: cirrhosis 2/2 alcohol abuse, HTN, hypersplenism, pancytopenia PSHx: R ankle FHx: non-contributory Social: Prior alcohol abuse. Former smoker. No drug use. - Review of Systems General: denies: fever/chills, weight/appetite/sleep changes ENT: denies: nasal congestion, rhinorrhea Respiratory: denies: cough, shortness of breath Cardiovascular: denies: chest pain, edema Gastrointestinal: denies: nausea, vomiting, diarrhea Genitourinary: denies: incontinence, dysuria Skin: denies: rashes, lesions Musculoskeletal: denies: pain, tenderness Neurological: denies: numbness, weakness - Vital signs BP: 146/87 HR: 76 RR: 14 Tmax: 98.5 Pox: 99% on RA Wt: 95kg - Physical Exam Constitutional: NAD, well developed HEENT: normocephalic and atraumatic, grossly normal vision, grossly normal hearing, MMM Heart: RRR, normal S1/S2 Lungs: CTAB, no respiratory distress Abdomen: soft, non-tender, bowel sounds present (no fluid wave), no masses/ distention Musculoskeletal: normal structure, normal tone Neurological: CN II-XII intact, normal sensation, other (Muscle strength 4/5 BUE , 5/5 BLE. alert to person. knows the year but not the day or month. not oriented to place.) Skin: good turgor Heme/Lymphatic: no unusual bruising or bleeding FMR H&P: Results - Labs Result Diagrams: 11/06/19 22:50 11/06/19 22:50 Lab results: WBC 3.8 thou/uL (4.8-10.8) L 11/06/19 22:50 Hgb 12.3 g/dL (14.0-18.0) L 11/06/19 22:50 Hct 36.4 % (42.0-52.0) L 11/06/19 22:50 MCV 99.4 fL (78.0-98.0) H 11/06/19 22:50 Plt Count 132 thou/uL (130-400) 11/06/19 22:50 Neutrophils % 59.2 % (42.0-75.0) 11/06/19 22:50 Sodium 142 mmol/L (136-145) 11/06/19 22:50 Potassium 3.8 mmol/L (3.5-5.1) 11/06/19 22:50 Chloride 109 mmol/L (98-107) H 11/06/19 22:50 Carbon Dioxide 26 mmol/L (23-31) 11/06/19 22:50 BUN 11 mg/dL (8.4-25.7) 11/06/19 22:50 Creatinine 0.83 mg/dL (0.7-1.3) 11/06/19 22:50 Glucose 106 mg/dL (80-115) 11/06/19 22:50 Calcium 9.0 mg/dL (7.8-10.44) 11/06/19 22:50 Total Bilirubin 2.3 mg/dL (0.2-1.2) H 11/06/19 22:50 AST 50 U/L (5-34) H 11/06/19 22:50 ALT 30 U/L (8-55) 11/06/19 22:50 Alkaline Phosphatase 148 U/L (40-110) H 11/06/19 22:50 Ammonia 61 umol/L (18-72) 11/06/19 23:53 Serum Total Protein 7.2 g/dL (5.8-8.1) 11/06/19 22:50 Albumin 3.4 g/dL (3.4-4.8) 11/06/19 22:50 Urine Ketones Negative mg/dL (Negative) 11/06/19 22:16 Urine Blood Negative (Negative) 11/06/19 22:16 Urine Nitrite Negative (Negative) 11/06/19 22:16 Ur Leukocyte Esterase Negative Kristy/uL (Negative) 11/06/19 22:16 FMR H&P: A/P - Plan 64 yo M with PMH cirrhosis is admitted for hepatic encephalopathy. AMS 2/2 hepatic encephalopathy - ammonia 61. Labs essentially unchanged compared to prior admission - No signs of infection, hypoglycemia, GI bleed. CT brain unchanged compared to prior. No electrolyte abnormalities. - patient has hx recurrent ED visits for AMS 2/2 lactulose noncompliance. Request records from [facility]. Would be helpful to discuss reason for noncompliance when patient's mentation returns. Unsure if he refuses medicine vs needs increased daily dose. - ordered UDS Liver cirrhosis 2/2 alcohol abuse - CT ab from 2018 showed esophageal varices and findings suggestive of portal HTN - Was discharge on lactulose 20mg BID but required qid dosing on last admission to return to baseline. - will check coags - start lactulose qid and will adjust for goal of ~3 soft stools daily. - continue home omeprazole. COVID PUI - swabbed due to incarceration status, no reported symptoms HTN - continue home spironolactone, lasix. No clear documentation of CHF in chart review. Pancytopenia - 2/2 chronic disease, iron deficiency - labs stable - continue home iron supplement Hx hypersplenism Hx intraventricular colloid cyst, 8mm, stable Diet: Code: full Ppx: SCDs, pending coags PCP: [facility] Attending: Good Dispo: admit for observation, expected stay <48h. Addendum - Attending - Attending Attestation Date/Time: 11/07/19 9495 I personally evaluated the patient and discussed the management with Dr. Graham I agree with the History, Examination, Assessment and Plan documented above with any addition or exceptions noted below -64 yo incarcerated male with PMH alcoholic cirrhosis is admitted for AMS. History obtained from checkout. Patient unable to give history. He was reported completely alert and oriented earlier today and then progressively became more altered and was brought to ED. Patient does not know what happened today, thinks he is still in penitentiary. Denies any complaints and says he is feeling well. Afebrile VSS. A/P: 1) Hepatic encephalopathy - continue lactulose; not oriented to place currently. 2) HTN- stable. 3) Incarcerated - COVID swab pending.
[2019-11-07 03:29] VITALS: BMI 31.8
[2019-11-07] MEDS ORDERED: Ondansetron ODT 4 MG TAB PO PRN (04:06)
[2019-11-07] MEDS ORDERED: Acetaminophen 325 MG TAB PO PRN (04:06)
[2019-11-07 07:54] LABS: INR-International Normal Ratio 1.3; Prothrombin Time 16.5 sec (12.0-14.7)
[2019-11-07] MEDS: Ferrous Sulfate 325 MG TAB PO SCH ×2 (08:05→17:49)
[2019-11-07] MEDS: Furosemide 40 MG TAB PO SCH ×2 (08:06→20:34)
[2019-11-07] MEDS: Spironolactone 25 MG TAB PO SCH (08:06)
[2019-11-07 15:46] LABS: Amphetamine Not Detected (NotDetected); Barbiturates Screen Not Detected (NotDetected); Benzodiazepine Screen Not Detected (NotDetected); Cocaine Metabolite Screen Not Detected (NotDetected); Medtox Control Line Valid? VALID (VALID); Medtox Reader # READER 4; Methadone Not Detected (NotDetected); Methamphetamine Not Detected (NotDetected); Opiate Screen Not Detected (NotDetected); Oxycodone Screen Not Detected (NotDetected); Phencyclidine (PCP) Not Detected (NotDetected); THC/Cannabinoid Screen Not Detected (NotDetected); Tricyclic Screen Not Detected (NotDetected)
[2019-11-07 17:11] LABS: SARS-CoV-2 MS2 Positive; SARS-CoV-2 N Gene Negative; SARS-CoV-2 S Gene Negative; SARS-CoV-2 orf1ab Negative
[2019-11-08 05:06] LABS: ALT (SGPT) 29 U/L (8-55); AST (SGOT) 46 U/L (5-34); Albumin 3.2 g/dL (3.4-4.8); Alkaline Phosphatase 146 U/L (40-110); Anion Gap 11 mmol/L (10-20); BUN (Urea Nitrogen) 10 mg/dL (8.4-25.7); Bilirubin, Total 1.8 mg/dL (0.2-1.2); Calc. Creatinine Clearance 106 mL/min (70-130); Calcium 8.8 mg/dL (7.8-10.44); Carbon Dioxide 26 mmol/L (23-31); Chloride 106 mmol/L (98-107); Estimated GFR-MDRD 87; Globulin 3.6 g/dL (2.4-3.5); Glucose 99 mg/dL (80-115); Potassium 3.7 mmol/L (3.5-5.1); Protein, Total 6.8 g/dL (5.8-8.1); Sodium 139 mmol/L (136-145)
[2019-11-08 05:57] LABS: Band 8 % (5-11); Eosinophils 8 % (0-10); Hemoglobin 12.4 g/dL (14.0-18.0); Lymphocytes 28 % (21-51); MDiff Complete? YES; Mean Corpuscular HGB CONC 33.7 g/dL (32.0-36.0); Mean Corpuscular Hemoglobin 33.7 pg (27.0-31.0); Mean Platelet Volume 6.8 fL (7.4-10.4); Monocytes 11 % (0-10); Neutrophil 45 % (42-75); Platelet Count 131 thou/uL (130-400); RBC Distribution Width 15.9 % (11.5-14.5); Red Blood Cell (RBC) Count 3.66 mill/uL (4.70-6.10); White Blood Cell (WBC) Count 4.1 thou/uL (4.8-10.8)
--- NOTE | 2019-11-08 07:02 | PDOC.FM ---
- Subjective Subjective: NAEO. Patient resting comfortably in bed. Patient able to say where he is, name today. Patient states that in the hospital he was taking 1-2 tabs of lactulose. - Objective MAR Reviewed: Yes Vital Signs & Weight: Vital Signs (12 hours) Temp Pulse Resp BP Pulse Ox 11/08/19 03:43 98.2 F 67 18 113/55 L 98 11/07/19 23:15 98.1 F 71 16 136/63 97 11/07/19 20:00 98.5 F 65 16 117/55 L 98 Weight Weight 90.5 kg I&O: 11/06/19 11/07/19 11/08/19 06:59 06:59 06:59 Intake Total 1330 Output Total 504 Balance 826 Result Diagrams: 11/08/19 04:33 11/08/19 04:33 Phys Exam - Physical Examination Constitutional: NAD HEENT: moist MMs, sclera anicteric Neck: supple Respiratory: clear to auscultation bilateral Cardiovascular: RRR Gastrointestinal: soft, non-tender, positive bowel sounds mildly distended Musculoskeletal: no edema Neurological: non-focal, moves all 4 limbs Psychiatric: normal affect Deviation from normal: axox2 Skin: no rash, normal turgor, cap refill <2 seconds Dx/Plan (1) Hepatic encephalopathy Code(s): K72.90 - HEPATIC FAILURE, UNSPECIFIED WITHOUT COMA Status: Acute (2) Alcoholic cirrhosis Code(s): K70.30 - ALCOHOLIC CIRRHOSIS OF LIVER WITHOUT ASCITES Status: Chronic Qualifiers: Ascites presence: without ascites Qualified Code(s): K70.30 - Alcoholic cirrhosis of liver without ascites (3) HTN (hypertension) Code(s): I10 - ESSENTIAL (PRIMARY) HYPERTENSION Status: Chronic Qualifiers: Hypertension type: essential hypertension Qualified Code(s): I10 - Essential (primary) hypertension (4) Thrombocytopenia Code(s): D69.6 - THROMBOCYTOPENIA, UNSPECIFIED Status: Chronic - Plan Plan: 64 yo M with PMH cirrhosis is admitted for hepatic encephalopathy. AMS 2/2 hepatic encephalopathy Patient has hx recurrent ED visits for AMS 2/2 lactulose noncompliance. No signs of infection, hypoglycemia, GI bleed. CT brain unchanged compared to prior. No electrolyte abnormalities. UDS NEGATIVE. - Ammonia 61. Labs essentially unchanged compared to prior admission. - Request records from [facility]. Unsure if he refuses medicine vs needs increased daily dose. - Will titrate lactulose to 3 stools/day, will monitor. Currently on 30 QID and had 3 stools yesterday. Last time, patient discharged on 20mg lactulose BID. Will encourage patient to take 30 mg BID - TID and to titrate to 2-3 stools/day to prevent return to the hospital. Patient agreeable. Liver cirrhosis 2/[address] ab from 2018 showed esophageal varices and findings suggestive of portal HTN. Was discharged on lactulose 20mg BID but required qid dosing on last admission to return to baseline. Coags normal. - Start lactulose qid and will adjust for goal of ~3 soft stools daily. Can decrease upon discharge with the goal of 2-3 stools/day. - Continue home omeprazole. HTN - continue home spironolactone, lasix. No clear documentation of CHF in chart review. Pancytopenia - 2/2 chronic disease, iron deficiency - Labs stable - Continue home iron supplement Hx hypersplenism - Hx intraventricular colloid cyst, 8mm, stable Dispo: dc later today Diet: HH Code: full PCP: [facility]- [facility] Case discussed with Dr. Funk Addendum - Attending - Attending Attestation Date/Time: 11/08/19 8583 I personally evaluated the patient and discussed the management with Dr. Graham I agree with the History, Examination, Assessment and Plan documented above with any addition or exceptions noted below- PAtient without complaints. Not oriented x 4. Afebrile VSS. A/P: 1) Hepatic encephalopathy resolved. d/c back to facility to continue with BID-TID lactulose.
[2019-11-08] MEDS: Spironolactone 25 MG TAB PO SCH (08:02)
[2019-11-08] MEDS: Ferrous Sulfate 325 MG TAB PO SCH (08:02)
[2019-11-08] MEDS: Furosemide 40 MG TAB PO SCH ×2 (08:02→14:19)
[2019-11-08 08:10] VITALS: BP 136/69; TEMP 98.1
--- NOTE | 2019-11-09 11:28 | DIS ---
DATE OF ADMISSION: 11/07/2019 DATE OF DISCHARGE: 11/08/2019 RESIDENT: Lizette Graham MD ADMITTING ATTENDING: Bhaskar Irizarry MD DISCHARGE ATTENDING: Malissa Funk MD CONSULTS: None. PROCEDURES PERFORMED: None. DISCHARGE MEDICATIONS: 1. Lactulose 30 g oral 3 times daily. 2. Spironolactone 100 mg oral daily. 3. Omeprazole 20 mg oral daily. 4. Furosemide 40 mg oral twice daily. 5. Ferrous sulfate 325 mg oral twice daily. 6. Rifaximin 600 mg oral twice daily. PRIMARY DIAGNOSES: 1. Altered mental status secondary to hepatic encephalopathy. 2. Liver cirrhosis secondary to alcohol abuse. SECONDARY DIAGNOSES: 1. Hypertension. 2. Pancytopenia. 3. History of hypersplenism. HISTORY OF PRESENT ILLNESS/HOSPITAL COURSE: This is a 64-year-old incarcerated male with past medical history of alcoholic cirrhosis, admitted for altered mental status. Per reports, the patient has been completely alert and oriented earlier in the day, progressively became more altered and was brought to the ER. Of note, the patient was recently discharged from the hospital in August for altered mental status due to refusing lactulose at the nursing home and was transferred to [facility] at that time. The patient was unable to be transferred to [place] as it was at full capacity. In the ER, the patient was not given new medications, CT brain showed a stable intraventricular colloid cyst and chronic findings that were stable. The patient's vital signs were within normal limits. The patient's labs were notable for an ammonia of 61. The patient was admitted for treatment of hepatic encephalopathy. The patient was also swabbed for COVID as he was coming from nursing home and there had been multiple cases there. Low suspicion for COVID in this patient. The patient was started on lactulose 30 g q.i.d. and titrated to three stools a day. On day 2 of hospitalization, the patient was much more alert and oriented. Discussed with patient the importance of taking lactulose up to 3 or 4 times daily, so that he can have 2 to 3 stools a day. The patient is in agreement and understanding of this. Patient was discharged back to the nursing home. DISPOSITION: Stable. DISCHARGE INSTRUCTIONS: 1. Location: [facility]. 2. Activity: Ad chary. 3. Diet: Heart healthy. 4. Followup: Follow up with PCP within one week. Job ID: [id number] MTDD
--- NOTE | 2019-11-14 11:53 | EKG ---
Test Reason : Blood Pressure : / mmHG Vent. Rate : 075 BPM Atrial Rate : 075 BPM P-R Int : 194 ms QRS Dur : 078 ms QT Int : 448 ms P-R-T Axes : 053 023 048 degrees QTc Int : 500 ms Sinus rhythm with occasional Premature ventricular complexes Prolonged QT Abnormal ECG Confirmed by NABOR PARHAM ([id number]), research editor DOUG SPANN ([id number]) on 11/14/2019 11:52:55 AM Referred By: Confirmed By:NABOR Vergara
== END 2019-11-08 14:31 ==
LOC: ERS 21:48 → EEVIPCON 11-07 01:29 → 2SW 11-07 01:29
PROVIDERS: ADMIT Family Medicine; ATTEND Family Medicine
DX: K72.90 Hepatic failure, unspecified without coma (principal); K70.30 Alcoholic cirrhosis of liver without ascites; F10.11 Alcohol abuse, in remission; I11.0 Hypertensive heart disease with heart failure; I50.9 Heart failure, unspecified; D61.818 Other pancytopenia; D73.1 Hypersplenism; G93.0 Cerebral cysts; Z03.818 Encounter for observation for suspected exposure to other biological agents ruled out; Z87.891 Personal history of nicotine dependence; Z79.899 Other long term (current) drug therapy
CPT/HCPCS: 36415; 70450; 71045; 80053; 80306; 81003; 82140; 85007; 85025; 85027; 85610; 87635; 93005; G0378; U0003

== ENCOUNTER 2019-11-10 00:40 | Inpatient (IN) | payer OTHER ==
--- NOTE | 2019-11-10 02:32 | PDOC.FPRHP ---
- History of Present Illness Chief Complaint: AMS History of Present Illness: 64 y/o M PMHx cirrhosis, esophageal varices presents due to AMS. He had been non -compliant with his lactulose. He was discharged on 11/07 from the hospital where he had been treated for hepatic encephalopathy, but was refusing his lactulose so began developing symptoms again. Unable to obtain any hx from patient as he was intubated at the time of my evaluation. ED Course: Patient was intubated in the ED due to AMS and he was given lactulose via OG tube - Allergies/Adverse Reactions Allergies Allergy/AdvReac Type Severity Reaction Status Date / Time No Known Drug Allergies Allergy Verified 11/07/19 03:05 - Home Medications Medication Instructions Recorded Confirmed Type Ferrous Sulfate 325 mg PO BID 09/05/19 11/10/19 History Furosemide 40 mg PO BID 09/05/19 11/10/19 History Omeprazole 20 mg PO DAILY 09/05/19 11/10/19 History Spironolactone 100 mg PO DAILY 09/05/19 11/10/19 History Rifaximin [Xifaxan] 600 mg PO BID 11/07/19 11/10/19 History Lactulose 30 gm PO TID #10 udcup 11/08/19 11/10/19 Rx - History Patient unable to provide history. Chart reviewed. PMHx: cirrhosis 2/2 alcohol abuse, HTN, hypersplenism, pancytopenia PSHx: R ankle FHx: non-contributory Social: Prior alcohol abuse. Former smoker. No drug use. Current inmate - Review of Systems ROS unobtainable: due to endotracheal tube - Vital signs BP: 104/51 HR: 62 RR: 20 Pox: 98% on vent - Physical Exam -Constitutional: intubated, sedated HEENT: normocephalic and atraumatic, PERRLA, MMM, other (OG tube and ET tube in place) Neck: supple, no LAD Heart: RRR, normal S1/S2, no murmurs/rubs/gallops, pulses present, other (trace pitting edema in BLE) Lungs: CTAB, good air movement, no rales/rhonchi, no wheezing Abdomen: soft, bowel sounds present, other (+ fluid wave) Musculoskeletal: normal structure, normal tone Neurological: other (unable to eval fully due to sedation) Skin: good turgor, capillary refill <2 seconds Heme/Lymphatic: no LAD, other (bruise on LUE) FMR H&P: Results - Labs Result Diagrams: 11/10/19 03:44 11/10/19 03:44 Lab results: WBC 4.0, Hgb 11.6, Hct 32.9, platelet 121 Na 144, K 3.8, Cl 107, CO2 30, Gluc 138, BUN 19, cr 1.0, Bili 1.3, AST 47, ALT 36, Alk phos 144 Ammonia 269 VBG: pH 7.496, pCO2 38.9, pO2 59.3, base excess 5.8 ABG: pH 7.447, pCO2 42.2, pO2 400.1, HCO3 28.5, base excess 4.0 - Radiology Interpretation Chest x-ray Status: report reviewed by me Additional comment: no acute abnormality, stable cardiomegaly FMR H&P: A/P - Problem List (1) Acute respiratory failure with hypoxia Current Visit: Yes Status: Acute Code(s): J96.01 - ACUTE RESPIRATORY FAILURE WITH HYPOXIA (2) Hepatic encephalopathy Current Visit: No Status: Acute Code(s): K72.90 - HEPATIC FAILURE, UNSPECIFIED WITHOUT COMA (3) Alcoholic cirrhosis Current Visit: No Status: Chronic Code(s): K70.30 - ALCOHOLIC CIRRHOSIS OF LIVER WITHOUT ASCITES Qualifiers: Ascites presence: without ascites Qualified Code(s): K70.30 - Alcoholic cirrhosis of liver without ascites (4) HTN (hypertension) Current Visit: No Status: Chronic Code(s): I10 - ESSENTIAL (PRIMARY) HYPERTENSION Qualifiers: Hypertension type: essential hypertension Qualified Code(s): I10 - Essential (primary) hypertension - Plan 1. Acute Hypoxic Respiratory Failure 2/2 encephalopathy -Admit to ICU -Consult pulm in AM for vent management -COVID-19 PUI due to incarcerated status -Sedation protocol 2. Hepatic Encephalopathy Pt with medication non-compliance -Continue lactulose and titrate to 2-3 BM's/day -Continue rifaximin 3. Alcoholic Cirrhosis -Continue home lasix and spironolactone -Check coags 4. HTN -Continue home lasix and spironolactone 5. Incarcerated 6. COVID PUI 2/2 incarcerated status with contacts in jail -COVID-19 result -Precautions Code Status: Assumed full, however pt currently intubated Diet: NPO VTE ppx: Lovenox GI ppx: Protonix Lines/Tubes: Lopez (11/09), 2 PIV in R arm (11/09) Disposition/LOS: Admit to ICU, LOS > 2 days Addendum - Attending - Attending Attestation Date/Time: 11/10/19 1014 I personally evaluated the patient and discussed the management with Dr. Ascencio. I agree with the History, Examination, Assessment and Plan documented above with any addition or exceptions noted below. Patient had bleeding after attempt NG placement. Subsequently had OG placement with dark brown return. Trend h/h. Continue lactulose. Frequent sedation vacations.
[2019-11-10] MEDS ORDERED: Propofol 1,000 MG/100 ML VIAL IV ONE (02:47)
[2019-11-10] MEDS ORDERED: Ventilator Sedation Protocol 1 EACH FS ONE (03:15)
[2019-11-10] MEDS ORDERED: fentaNYL Citrate/PF 2,000 MCG in Sodium Chloride 0.9% 60 ML IV SCH (03:22)
[2019-11-10] MEDS ORDERED: Morphine 2 MG/ML SYRINGE SLOW IVP PRN (03:22)
[2019-11-10] MEDS ORDERED: Lorazepam 2 MG/ML VIAL SLOW IVP PRN (03:22)
[2019-11-10] MEDS ORDERED: DISCONTINUE PREVIOUS NARCOTIC PAIN MEDICATIONS AND BENZODIAZEPINES FS SCH (03:22)
[2019-11-10] MEDS ORDERED: Fentanyl BOLUS 250 ML IVPB PRN (03:22)
[2019-11-10] MEDS ORDERED: Propofol BOLUS 1,000 MG/100 ML VIAL IV PRN (03:22)
[2019-11-10 04:05] LABS: INR-International Normal Ratio 1.3; PTT 41.3 SEC (22.9-36.1); Prothrombin Time 16.4 sec (12.0-14.7)
[2019-11-10 04:21] LABS: ALT (SGPT) 23 U/L (8-55); AST (SGOT) 35 U/L (5-34); Albumin 2.8 g/dL (3.4-4.8); Alkaline Phosphatase 121 U/L (40-110); Anion Gap 10 mmol/L (10-20); BUN (Urea Nitrogen) 17 mg/dL (8.4-25.7); Bilirubin, Total 1.7 mg/dL (0.2-1.2); Calc. Creatinine Clearance 113 mL/min (70-130); Calcium 8.8 mg/dL (7.8-10.44); Carbon Dioxide 28 mmol/L (23-31); Chloride 107 mmol/L (98-107); Estimated GFR-MDRD Greater than 90; Globulin 3.3 g/dL (2.4-3.5); Glucose 151 mg/dL (80-115); Potassium 3.5 mmol/L (3.5-5.1); Protein, Total 6.1 g/dL (5.8-8.1); Sodium 141 mmol/L (136-145)
[2019-11-10 04:30] LABS: #Eosinphils 0.2 thou/uL (0.0-0.7); #Lymphocytes 0.8 thou/uL (1.20-3.40); #Monocytes 0.3 thou/uL (0.11-0.59); #Neutrophils 2.1 thou/uL (1.40-6.50); %Basophils 0.8 % (0.0-1.0); %Eosinophils 4.5 % (0.0-10.0); %Lymphocytes 22.4 % (21.0-51.0); %Neutrophils 63.2 % (42.0-75.0); Hemoglobin 10.9 g/dL (14.0-18.0); Mean Corpuscular HGB CONC 34.8 g/dL (32.0-36.0); Mean Corpuscular Hemoglobin 34.5 pg (27.0-31.0); Mean Platelet Volume 6.6 fL (7.4-10.4); Platelet Count 95 thou/uL (130-400); Platelet Morphology Comment Appears Decreased; RBC Distribution Width 15.5 % (11.5-14.5); Red Blood Cell (RBC) Count 3.16 mill/uL (4.70-6.10); White Blood Cell (WBC) Count 3.4 thou/uL (4.8-10.8)
[2019-11-10] MEDS: Propofol 1,000 MG/100 ML VIAL IV PRN ×3 (07:03→17:11)
[2019-11-10 08:12] LABS: Actual Bicarbonate (HCO3a) 25.9 mEq/L (22-28); Base Excess (BEa) 1.4 mEq/L (-2.0 to +3.0); CO2 Tension 40.4 mmHg (35.0-45.0); Calcium, Ionized (arterial) 1.19 mmol/L (1.12-1.30); Carboxyhemoglobin (COHb) 0.8 gm% (0.0-3.0); Hemoglobin (Hb) 11.9 g/dL (14.0-18.0); O2 Tension (PaO2), arterial 140.6 mmHg (> 80.0); Potassium - ABG Lab 3.08 mmol/L (3.70-5.30); pH, Arterial 7.42 (7.35-7.45)
[2019-11-10 08:35] LABS: Puncture Site RR
[2019-11-10] MEDS: Enoxaparin Sodium 30 MG/0.3 ML SYRINGE SC SCH (08:57)
[2019-11-10] MEDS: Pantoprazole 40 MG VIAL IVP SCH ×2 (08:58→21:21)
[2019-11-10] MEDS: Rifaximin 550 MG TAB PO SCH ×2 (08:59→21:21)
[2019-11-10] MEDS: Spironolactone 25 MG TAB PER TUBE SCH (08:59)
[2019-11-10] MEDS: Furosemide 20 MG TAB PER TUBE SCH ×2 (08:59→13:58)
[2019-11-10] MEDS ORDERED: Rifaximin 550 MG TAB PER TUBE SCH (09:00)
[2019-11-10] MEDS ORDERED: Enoxaparin Sodium 40 MG/0.4 ML SYRINGE SC SCH (09:00)
[2019-11-10] MEDS ORDERED: Furosemide 40 MG TAB PER TUBE SCH (09:00)
[2019-11-10] MEDS ORDERED: RIFAXIMIN PO SCH (09:00)
[2019-11-10] MEDS ORDERED: Prevnar 13-Val Conj/PF 0.5 ML SYRINGE IM ONE (09:00)
--- NOTE | 2019-11-10 10:35 | CON ---
DATE OF CONSULTATION: HISTORY OF PRESENT ILLNESS: Lexi is a 64-year-old prisoner who was taken to the [facility] last night with metabolic encephalopathy. The ER physician notified me that the patient was intubated because of altered mental status. 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 His medicines at home included; rifaximin 550 twice a day, ferrous sulfate, Lasix 40, spironolactone 100, omeprazole 20. He was at [facility] most recently under the care of family medicine physician. The documentation of last night from the Med by the ER physician stated that he came there at 2342 hours with altered mental status. He was intubated thereafter. His sats are 100%, nonrebreather were 92%. No additional information at this stage is obtainable. We are in the process of awaiting results of his coronavirus serology. He has extensive history outlined by the recent medical H and P on 11/07/2019. Past surgeries otherwise included some ankle surgery. SOCIAL HISTORY: Alcohol abuse. PHYSICAL EXAMINATION: GENERAL: He is intubated on the vent. VITAL SIGNS: Pulse 97, blood pressure respirations 18. He is afebrile. CHEST: No wheezing or crackles. CARDIAC: Normal S1, S2. No masses. NEUROLOGICAL: Sedated. LABORATORY DATA: White count 3.4, platelet count is 95. Lytes are normal. His x-ray of the normal. IMPRESSION: 1. Metabolic encephalopathy, secondary to alcoholic liver disease. 2. Respiratory failure. We will try and obtain lab, minimize sedation. Hopefully, try and wean once he is more responsive. This is a 45-minute critical care time. Please note, we are going to restart him pretty much on all his previous cirrhotic medications. Job ID: [id number]
[2019-11-11] MEDS: Propofol 1,000 MG/100 ML VIAL IV PRN ×2 (00:21→05:45)
[2019-11-11 03:35] LABS: #Eosinphils 0.2 thou/uL (0.0-0.7); #Monocytes 0.6 thou/uL (0.11-0.59); #Neutrophils 4.6 thou/uL (1.40-6.50); %Basophils 0.6 % (0.0-1.0); %Eosinophils 2.5 % (0.0-10.0); %Lymphocytes 15.3 % (21.0-51.0); %Monocytes 9.3 % (0.0-10.0); %Neutrophils 72.4 % (42.0-75.0); Hemoglobin 11.7 g/dL (14.0-18.0); Mean Corpuscular Hemoglobin 34.8 pg (27.0-31.0); Mean Corpuscular Volume 99.6 fL (78.0-98.0); Mean Platelet Volume 6.8 fL (7.4-10.4); Platelet Count 87 thou/uL (130-400); RBC Distribution Width 15.4 % (11.5-14.5); Red Blood Cell (RBC) Count 3.35 mill/uL (4.70-6.10); White Blood Cell (WBC) Count 6.4 thou/uL (4.8-10.8)
[2019-11-11 03:52] LABS: ALT (SGPT) 22 U/L (8-55); AST (SGOT) 44 U/L (5-34); Albumin 2.8 g/dL (3.4-4.8); Alkaline Phosphatase 132 U/L (40-110); Anion Gap 12 mmol/L (10-20); BUN (Urea Nitrogen) 15 mg/dL (8.4-25.7); Bilirubin, Total 2.6 mg/dL (0.2-1.2); Calc. Creatinine Clearance 119 mL/min (70-130); Calcium 8.1 mg/dL (7.8-10.44); Carbon Dioxide 24 mmol/L (23-31); Chloride 108 mmol/L (98-107); Estimated GFR-MDRD Greater than 90; Globulin 3.6 g/dL (2.4-3.5); Glucose 119 mg/dL (80-115); Potassium 3.4 mmol/L (3.5-5.1); Protein, Total 6.4 g/dL (5.8-8.1); Sodium 141 mmol/L (136-145)
--- NOTE | 2019-11-11 06:46 | PDOC.FM ---
- Subjective Subjective: pt ventilated and minimally sedated, spontaeous movements in all 4 ext. gag reflex present. spontaneous eye opening. - Objective Vital Signs & Weight: Vital Signs (12 hours) Temp Pulse Resp BP Pulse Ox 11/11/19 06:00 20 11/11/19 04:00 99.8 F H 20 11/11/19 02:47 86 11/11/19 02:00 20 11/11/19 00:00 99.6 F 21 H 11/10/19 22:18 78 144/63 H 11/10/19 22:00 20 11/10/19 20:00 99.8 F H 20 11/10/19 19:49 100 Weight Admit Weight 87.543 kg Weight 87.7 kg Most Recent Monitor Data Heart Rate from ECG 77 NIBP 140/68 NIBP BP-Mean 92 Respiration from ECG 20 SpO2 96 I&O: 11/09/19 11/10/19 11/11/19 06:59 06:59 06:59 Intake Total 85.6 1083 Output Total 518 1910 Balance -432.4 -827 Result Diagrams: 11/11/19 03:17 11/11/19 03:17 Phys Exam - Physical Examination Constitutional: NAD HEENT: moist MMs Neck: no JVD, supple Respiratory: clear to auscultation bilateral Cardiovascular: RRR, no significant murmur Gastrointestinal: no distention, positive bowel sounds Musculoskeletal: no edema, pulses present Neurological: moves all 4 limbs Skin: no rash Dx/Plan (1) Acute respiratory failure with hypoxia Code(s): J96.01 - ACUTE RESPIRATORY FAILURE WITH HYPOXIA Status: Acute (2) Hepatic encephalopathy Code(s): K72.90 - HEPATIC FAILURE, UNSPECIFIED WITHOUT COMA Status: Acute (3) Alcoholic cirrhosis Code(s): K70.30 - ALCOHOLIC CIRRHOSIS OF LIVER WITHOUT ASCITES Status: Chronic Qualifiers: Ascites presence: without ascites Qualified Code(s): K70.30 - Alcoholic cirrhosis of liver without ascites (4) HTN (hypertension) Code(s): I10 - ESSENTIAL (PRIMARY) HYPERTENSION Status: Chronic Qualifiers: Hypertension type: essential hypertension Qualified Code(s): I10 - Essential (primary) hypertension - Plan Plan: Acute Hypoxic Respiratory Failure 2/2 encephalopathy - intubated in outside ED, ABG wnl on arrival - Sedation protocol - attempt to wean Hepatic Encephalopathy Pt with medication non-compliance -Continue lactulose and titrate to 2-3 BM's/day -Continue rifaximin Alcoholic Cirrhosis -Continue home lasix and spironolactone -coags near baseline HTN -Continue home lasix and spironolactone Incarcerated COVID neg Code Status: Full Diet: NPO VTE ppx: Lovenox GI ppx: Protonix Lines/Tubes: Lopez (11/09), 2 PIV in R arm (11/09) dispo: wean sedation and eval for extubation Addendum - Attending - Attending Attestation Date/Time: 11/11/19 5027 I personally evaluated the patient and discussed the management with Dr. Medina. I agree with the History, Examination, Assessment and Plan documented above with any addition or exceptions noted below. Patient now extubated. Still somewhat confused. On Lactulose for his encephalopathy 2/2 med noncompliance. Continue that and other chronic meds. If doing well s/p extubation can transfer to medical floor. COVID negative as we expected.
[2019-11-11 06:49] LABS: Actual Bicarbonate (HCO3a) 25.9 mEq/L (22-28); CO2 Tension 34.1 mmHg (35.0-45.0); Calcium, Ionized (arterial) 1.11 mmol/L (1.12-1.30); Carboxyhemoglobin (COHb) 1.2 gm% (0.0-3.0); Hemoglobin (Hb) 12.6 g/dL (14.0-18.0); Potassium - ABG Lab 3.36 mmol/L (3.70-5.30)
[2019-11-11 06:51] LABS: Puncture Site RBA
[2019-11-11 06:54] LABS: ALV-art Gradient 130.575 (0-20)
[2019-11-11] MEDS ORDERED: Potassium Chloride 40 MEQ in Sodium Chloride 0.9% 250 ML 250 ML IVPB SCH (07:00)
--- NOTE | 2019-11-11 08:02 | RAD ---
SINGLE VIEW OF THE CHEST: Comparison: 11-06-2019 History: patient with altered mental status. FINDINGS: Single view of the chest shows a cardiomediastinal silhouette which is upper limits of normal in size . There is an endotracheal tube in good position with its tip above the lavern. An NG tube courses of f the inferior aspect of the film. There is obscurity of medial aspects of the left hemidiaphragm whi ch may represent atelectasis. No consolidation or pleural effusion are seen. IMPRESSION: 1. Appropriate position of lines and tubes. 2. Left lower lobe atelectasis. POS: [facility]AA
[2019-11-11] MEDS ORDERED: DC Sedation Protocol FS ONE (08:22)
[2019-11-11] MEDS: Enoxaparin Sodium 30 MG/0.3 ML SYRINGE SC SCH (08:26)
[2019-11-11] MEDS: Rifaximin 550 MG TAB PO SCH ×2 (08:26→20:58)
[2019-11-11] MEDS: Pantoprazole 40 MG VIAL IVP SCH ×2 (08:26→20:57)
[2019-11-11] MEDS: Spironolactone 25 MG TAB PER TUBE SCH (08:27)
[2019-11-11] MEDS: Furosemide 20 MG TAB PER TUBE SCH ×2 (08:27→15:22)
--- NOTE | 2019-11-11 08:54 | PRG ---
DATE OF SERVICE: 11/11/2019 SUBJECTIVE: This morning, sedation withheld. He is lethargic, but arousable. OBJECTIVE: VITAL SIGNS: Temperature 100.1, respiratory rate 20, blood pressure 133\77 CHEST: Decreased breath sounds. No wheezing. CARDIAC: Normal S1, S2. No gallops. ABDOMEN: No masses. LABORATORY DATA: White count 6000, H and H 11 and 33, platelet count is 87. PO2 is 112, pCO2 43 ph 7.53 Lytes are normal. Liver functions unremarkable. Ammonia level was elevated yesterday. Thyroid function normal. Chest x-ray is clear. ASSESSMENT: 1. Hepatic encephalopathy, cirrhosis. 2. Morbid obesity. PLAN: We will hopefully wean and extubate today. Continue otherwise PT, supportive care, nutrition. One-half hour of critical time. Job ID: [id number] MTDD
[2019-11-11] MEDS ORDERED: Ketorolac Tromethamine 30 MG/ML VIAL IVP SCH (09:45)
[2019-11-11] MEDS ORDERED: hydrALAZINE 20 MG/ML VIAL SLOW IVP PRN (10:07)
[2019-11-11] MEDS: Cefepime 1 GM in Sodium Chloride 0.9% 100 ML IVPB SCH ×2 (10:32→22:23)
[2019-11-12 04:37] LABS: ALT (SGPT) 21 U/L (8-55); AST (SGOT) 40 U/L (5-34); Albumin 2.6 g/dL (3.4-4.8); Alkaline Phosphatase 119 U/L (40-110); Anion Gap 11 mmol/L (10-20); BUN (Urea Nitrogen) 15 mg/dL (8.4-25.7); Calc. Creatinine Clearance 103 mL/min (70-130); Calcium 7.9 mg/dL (7.8-10.44); Carbon Dioxide 20 mmol/L (23-31); Chloride 109 mmol/L (98-107); Estimated GFR-MDRD 86; Globulin 3.6 g/dL (2.4-3.5); Glucose 247 mg/dL (80-115); Potassium 3.4 mmol/L (3.5-5.1); Protein, Total 6.2 g/dL (5.8-8.1); Sodium 137 mmol/L (136-145)
[2019-11-12 04:39] LABS: #Eosinphils 0.3 thou/uL (0.0-0.7); #Monocytes 0.5 thou/uL (0.11-0.59); #Neutrophils 3.2 thou/uL (1.40-6.50); %Basophils 0.5 % (0.0-1.0); %Eosinophils 5.1 % (0.0-10.0); %Lymphocytes 20.1 % (21.0-51.0); %Monocytes 9.4 % (0.0-10.0); %Neutrophils 64.9 % (42.0-75.0); Hemoglobin 11.4 g/dL (14.0-18.0); Mean Corpuscular HGB CONC 34.3 g/dL (32.0-36.0); Mean Corpuscular Hemoglobin 34.8 pg (27.0-31.0); Mean Platelet Volume 7.6 fL (7.4-10.4); Platelet Count 94 thou/uL (130-400); RBC Distribution Width 15.3 % (11.5-14.5); Red Blood Cell (RBC) Count 3.29 mill/uL (4.70-6.10); White Blood Cell (WBC) Count 4.9 thou/uL (4.8-10.8)
--- NOTE | 2019-11-12 07:02 | PDOC.FM ---
- Subjective Subjective: pt resting comfortably in bed, denies pain, sob. alert and oriented. - Objective Vital Signs & Weight: Vital Signs (12 hours) Temp Pulse Ox 11/12/19 04:00 98.8 F 11/12/19 02:37 95 11/12/19 00:00 98.4 F 11/11/19 19:09 95 11/11/19 19:01 96 Weight Admit Weight 87.543 kg Weight 89.1 kg Most Recent Monitor Data Heart Rate from ECG 66 NIBP 104/45 NIBP BP-Mean 64 Respiration from ECG 12 SpO2 95 I&O: 11/11/19 11/12/19 11/13/19 06:59 06:59 06:59 Intake Total 1083 691 Output Total 1910 4510 Balance -827 -579 Result Diagrams: 11/12/19 03:27 11/12/19 03:27 Phys Exam - Physical Examination Constitutional: NAD HEENT: moist MMs Neck: no JVD Respiratory: clear to auscultation bilateral Cardiovascular: no significant murmur Gastrointestinal: non-tender, no distention Musculoskeletal: pulses present Neurological: moves all 4 limbs Psychiatric: normal affect Skin: no rash Dx/Plan (1) Acute respiratory failure with hypoxia Code(s): J96.01 - ACUTE RESPIRATORY FAILURE WITH HYPOXIA Status: Acute (2) Hepatic encephalopathy Code(s): K72.90 - HEPATIC FAILURE, UNSPECIFIED WITHOUT COMA Status: Acute (3) Alcoholic cirrhosis Code(s): K70.30 - ALCOHOLIC CIRRHOSIS OF LIVER WITHOUT ASCITES Status: Chronic Qualifiers: Ascites presence: without ascites Qualified Code(s): K70.30 - Alcoholic cirrhosis of liver without ascites (4) HTN (hypertension) Code(s): I10 - ESSENTIAL (PRIMARY) HYPERTENSION Status: Chronic Qualifiers: Hypertension type: essential hypertension Qualified Code(s): I10 - Essential (primary) hypertension - Plan Plan: Acute Hypoxic Respiratory Failure 2/2 encephalopathy - intubated in outside ED, ABG wnl on arrival -extubated on 11/11/19 Hepatic Encephalopathy Pt with medication non-compliance -Continue lactulose and titrate to 2-3 BM's/day -Continue rifaximin Alcoholic Cirrhosis -Continue home lasix and spironolactone -coags near baseline HTN -Continue home lasix and spironolactone Incarcerated COVID neg Code Status: Full Diet: TUCKER VTE ppx: Lovenox GI ppx: Protonix dispo: advance diet, transfer to medical Addendum - Attending - Attending Attestation Date/Time: 11/12/19 120 I personally evaluated the patient and discussed the management with Dr. Medina. I agree with the History, Examination, Assessment and Plan documented above with any addition or exceptions noted below. Improved. Continue to advance diet, Lactulose to titrate to BM 2-3x/day. Hopeful discharge tomorrow.
--- NOTE | 2019-11-12 07:45 | RAD ---
EXAM: CHEST ONE VIEW HISTORY: On ventilator. Follow-up evaluation. COMPARISON: 11/11/2019 FINDINGS: Endotracheal tube and nasogastric tubes have been removed. Cardiac silhouette is magnified by project ion but is at the upper limits normal in size to borderline enlarged. Pulmonary vasculature is within normal limits lungs appear clear on today's exam. Opacity at the left lung base retrocardiac r egion on prior study is not appreciated on this exam. No other interval change. IMPRESSION: Interval removal of the endotracheal tube and nasogastric tubes. No acute cardiopulmonary process is identified.
--- NOTE | 2019-11-12 08:44 | PRG ---
DATE OF SERVICE: 11/12/2019 SUBJECTIVE: Breezy Elliott is a 64-year-old morbidly obese prisoner. This morning, he is much better. Awake, alert, and responsive. No longer encephalopathic. His chest x-ray shows no acute infiltrates. OBJECTIVE: VITAL SIGNS: His maximum temperature is 98. Blood pressure 101/42, respirations 18, pulse 80, and saturations 96 is noticed. CHEST: Decreased breath sounds. No wheezing. CARDIAC: Normal S1 and S2. No gallops. ABDOMEN: No masses. LABORATORY DATA: His ammonia level is 95, still elevated. ASSESSMENT: Hepatic encephalopathy and alcoholic liver disease. PLAN: Pulmonary paige transferred out of the ICU. Probably can switch his antibiotics tomorrow by mouth. PT and supportive care. Continue lactulose. Eventually placement. Job ID: [id number]
[2019-11-12] MEDS: Pantoprazole 40 MG VIAL IVP SCH (08:51)
[2019-11-12] MEDS: Rifaximin 550 MG TAB PO SCH ×2 (08:51→20:46)
[2019-11-12] MEDS: Enoxaparin Sodium 30 MG/0.3 ML SYRINGE SC SCH (08:51)
[2019-11-12] MEDS: Spironolactone 25 MG TAB PER TUBE SCH (08:51)
[2019-11-12] MEDS: Furosemide 20 MG TAB PER TUBE SCH (08:52)
[2019-11-12 14:43] VITALS: BMI 30.6
[2019-11-13] MEDS ORDERED: Potassium Chloride 20 MEQ TAB PO SCH (07:30)
--- NOTE | 2019-11-13 07:30 | PDOC.FM ---
- Subjective Subjective: pt resting comfortably in bed, AOx4. tolerating PO - Objective Vital Signs & Weight: Weight Admit Weight 87.543 kg Weight 91.444 kg Most Recent Monitor Data Heart Rate from ECG 66 NIBP 132/65 NIBP BP-Mean 87 Respiration from ECG 23 SpO2 97 I&O: 11/12/19 11/13/19 11/14/19 06:59 06:59 06:59 Intake Total 691 1000 Output Total 1270 2255 Balance -579 -1255 Result Diagrams: 11/12/19 03:27 11/13/19 07:44 Phys Exam - Physical Examination Constitutional: NAD HEENT: moist MMs Neck: no JVD Respiratory: clear to auscultation bilateral Cardiovascular: no significant murmur Gastrointestinal: no distention Neurological: moves all 4 limbs Psychiatric: normal affect Skin: no rash Dx/Plan (1) Acute respiratory failure with hypoxia Code(s): J96.01 - ACUTE RESPIRATORY FAILURE WITH HYPOXIA Status: Acute (2) Hepatic encephalopathy Code(s): K72.90 - HEPATIC FAILURE, UNSPECIFIED WITHOUT COMA Status: Acute (3) Alcoholic cirrhosis Code(s): K70.30 - ALCOHOLIC CIRRHOSIS OF LIVER WITHOUT ASCITES Status: Chronic Qualifiers: Ascites presence: without ascites Qualified Code(s): K70.30 - Alcoholic cirrhosis of liver without ascites (4) HTN (hypertension) Code(s): I10 - ESSENTIAL (PRIMARY) HYPERTENSION Status: Chronic Qualifiers: Hypertension type: essential hypertension Qualified Code(s): I10 - Essential (primary) hypertension - Plan Plan: Acute Hypoxic Respiratory Failure 2/2 encephalopathy - intubated in outside ED, ABG wnl on arrival -extubated on 11/11/19 Hepatic Encephalopathy Pt with medication non-compliance -Continue lactulose and titrate to 2-3 BM's/day -Continue rifaximin Alcoholic Cirrhosis -Continue home lasix and spironolactone -coags near baseline HTN -Continue home lasix and spironolactone hypokalemia - will repeat bmp and replace Incarcerated COVID neg Code Status: Full VTE ppx: Lovenox dispo: near baseline, DC back to assisted later today Addendum - Attending - Attending Attestation Date/Time: 11/13/19 1552 I personally evaluated the patient and discussed the management with Dr. Medina. I agree with the History, Examination, Assessment and Plan documented above with any addition or exceptions noted below. Patient back at baseline when on his chronic med regimen. If he presents again due to med non-adherence, he should be transferred to [facility] as he is not taking his meds for obvious secondary gain. Stable for discharge.
[2019-11-13 07:56] VITALS: BP 136/72; TEMP 97.9
[2019-11-13 08:21] LABS: Anion Gap 12 mmol/L (10-20); BUN (Urea Nitrogen) 12 mg/dL (8.4-25.7); Calc. Creatinine Clearance 129 mL/min (70-130); Calcium 8.1 mg/dL (7.8-10.44); Carbon Dioxide 24 mmol/L (23-31); Chloride 105 mmol/L (98-107); Estimated GFR-MDRD Greater than 90; Glucose 146 mg/dL (80-115); Sodium 137 mmol/L (136-145)
[2019-11-13] MEDS: Spironolactone 25 MG TAB PER TUBE SCH (09:01)
[2019-11-13] MEDS: Rifaximin 550 MG TAB PO SCH (09:01)
[2019-11-13] MEDS: Enoxaparin Sodium 30 MG/0.3 ML SYRINGE SC SCH (09:02)
--- NOTE | 2019-11-13 10:44 | PRG ---
DATE OF SERVICE: 11/13/2019 SUBJECTIVE: This morning, he is awake, alert, responsive, in no distress, remains afebrile. OBJECTIVE: VITAL SIGNS: on room air, blood pressure 113/62. CHEST: No wheezing or crackles. CARDIAC: Normal S1 and S2. No gallops. ABDOMEN: No masses. ASSESSMENT: Respiratory failure and encephalopathy. PLAN: He is much improved. He can be transferred back Job ID: [id number]
--- NOTE | 2019-11-15 03:25 | DIS ---
DATE OF ADMISSION: 11/10/2019 DATE OF DISCHARGE: 11/13/2019 ADMITTING ATTENDING: Dr. Nixon Marrero. DISCHARGE ATTENDING: Dr. Jonathan Luna. CONSULT: Pulmonology, Dr. Bharathi Barrett. IMAGING DATA: Chest x-ray with left lower lobe atelectasis, otherwise no acute cardiopulmonary process. DISCHARGE MEDICATIONS: 1. Spironolactone 100 mg p.o. daily. 2. Omeprazole 20 mg p.o. daily. 3. Furosemide 40 mg p.o. b.i.d. 4. Ferrous sulfate 325 mg p.o. b.i.d. 5. Rifaximin 600 mg p.o. b.i.d. 6. Lactulose 30 g p.o. t.i.d. PROCEDURES: Intubated on 11/10/2019, extubated on 11/12/2019. HISTORY OF PRESENT ILLNESS/HOSPITAL COURSE: Mr. Elliott is a 64-year-old male with a past medical history significant for cirrhosis, esophageal varices, presents due to altered mental status from prison. Staff reports that he has been noncompliant in taking his lactulose. He is recently discharged from the hospital on 11/07, treated for a panic encephalopathy toward the end of his hospitalization. He was refusing his lactulose again at that time. In the outside emergency department, the patient had altered mental status and unable to protect his airway. He was intubated there, and lactulose was began via OG tube. The patient transferred to our hospital for ICU care, remained on ventilatory support, lactulose via OG and per rectum. The patient's mental status improved, was able to be extubated. Mental status back to baseline with appropriate amount of lactulose and bowel movement at 30 g t.i.d. Of note, it is believed by IR Service that the patient has secondary gain in not taking his lactulose as prescribed and that he is refusing his medication again causing him to have altered mental status and hepatic encephalopathy, that he be admitted to [facility] for further care. DISCHARGE INSTRUCTIONS: LOCATION: [facility]. ACTIVITY: As tolerated. DIET: Heart healthy. FOLLOWUP: Follow up with [facility] in the next 3 to 7 days. Job ID: [id number]
--- NOTE | 2019-11-16 10:17 | PQF ---
VIRA DESOUZA JASON MD *r* [id number] CLINICAL DOCUMENTATION CLARIFICATION FORM: POST DISCHARGE Addendum to original discharge summary date: ____ Late entry note date: __ DATE: 11/16/2019 ATTN: TONE HYLTON MD Please exercise your independent, professional judgment in responding to the clarification form. Clinical indicators are provided on the bottom of this form for your review Please check appropriate box(s): [ X ] Encephalopathy: Type: [X ] Acute [ ] Subacute [ ] Chronic [ ] Alcoholic hepatic encephalopathy [X ] Hepatic encephalopathy unspecified [ ] Other diagnosis [ ] Unable to determine For continuity of documentation, please document condition throughout progress notes and discharge summary. Thank You. CLINICAL INDICATORS - SIGNS / SYMPTOMS / LABS - Altered mental status and hepatic encephalopathy- DS, 11/12, TONE HYLTON MD - Hepatic encephalopathy, pt with medication non-compliance H&P, 11/09, Janes Alicea MD - Metabolic encephalopathy secondary to alcoholic liver disease-Consultation, , Nena Garvin MD - Hepatic encephalopathy and alcoholic liver disease- Progress note, 11/11, Nena Garvin MD - Ammonia: 90H on 11/09, 95H on 11/11- Laboratory report RISK FACTORS - Noncompliant in taking his lactulose-DS, 11/12, TONE HYLTON MD - PMH: cirrhosis 2/2 alcohol abuse- Family medicine H&P, 11/09, Janes Alicea MD - Alcohol Abuse-Family medicine H&P, 11/09, Janes Alicea MD TREATMENTS: - Lactulose.PO- MAR, 11/09 to 11/12 - Sodium chloride.IV- AUG, 11/09/, 11/12 (This form is maintained as a part of the permanent medical record) 2014 [employer]. All Rights Reserved Travis KARYN
== END 2019-11-13 14:59 | DRG 441 ==
LOC: EEVIPCON → CCU 02:01 → T4-A 11-12 10:00
PROVIDERS: ADMIT Emergency Medicine; ATTEND Emergency Medicine
PROC: 5A1945Z Respiratory Ventilation, 24-96 Consecutive Hours (ICD-10-PCS; principal; 2019-11-10)
DX: K72.00 Acute and subacute hepatic failure without coma (principal); J96.01 Acute respiratory failure with hypoxia; G93.41 Metabolic encephalopathy; J98.11 Atelectasis; D61.818 Other pancytopenia; F10.10 Alcohol abuse, uncomplicated; I10 Essential (primary) hypertension; Z20.828 Contact with and (suspected) exposure to other viral communicable diseases; E66.01 Morbid (severe) obesity due to excess calories; K70.30 Alcoholic cirrhosis of liver without ascites; E87.6 Hypokalemia; D73.1 Hypersplenism; Z68.30 Body mass index [BMI] 30.0-30.9, adult; Z87.891 Personal history of nicotine dependence; Z91.14 Patient's other noncompliance with medication regimen
CPT/HCPCS: 36415; 71045; 80048; 80053; 82140; 82805; 84145; 84443; 85025; 85610; 85730; 94002; 94003; C9113; J0692; J1650; J2704; J3480; J3490; J7050